=== PATIENT | female | born 2000 | race Caucasian/White ===

== ENCOUNTER → 2022-08-14 | Outpatient (CLI) | payer BC, SELFPAY ==
--- NOTE | 2022-08-14 17:03 | RAD_ITS ---
INDICATION: headache, facial pressure, bilateral earache EXAMINATION/TECHNIQUE: X-RAY - XR Sinuses Paranasal Min 3 Views COMPARISON: FINDINGS: There is no significant mucosal thickening. There are no air-fluid levels. The regional bones are grossly intact. RAD/Sinuses min 3 Views IMPRESSION: Negative sinus series. Electronically Signed: Catarino Hirsch DO at 22:22 EDT ,
== END | disposition home or self-care (01) ==
PROVIDERS: PCP Family Medicine Sports Medicine; Referring Provider Physician Assistant; Visit Provider Physician Assistant
DX: H92.03 Otalgia, bilateral (principal)
CPT/HCPCS: 70220

== ENCOUNTER 2023-10-03 09:05 | Outpatient (CLI) | payer BC, SELFPAY ==
[2023-10-03 09:21] VITALS: BMI 37.3
--- NOTE | 2023-10-03 09:21 | OB.TRI.NOTE ---
HPI - General General Date of Admission: 10/03/23 Date of Service: 10/03/23 Chief Complaint: Headache HPI Narrative ANIBAL CORMIER, is a 22 F who presents headache since yesterday. Tylenol didn't help. BP was 140/76. 120s over 70s this am. Small amount of swelling. No previous high BP. History of chronic migraine. Does take topamax for migraines. Maternal Data Information Final MELVINA: 11/[birth year] Gestational age: 34+2 [facility] Medical History (Updated 10/03/23 @ 21:[address] Liya Mccormick MD) Headache Acute pain of both ears ACL (anterior cruciate ligament) rupture Acute anxiety Home Medications ?Medication ?Instructions ?Recorded ?Last Taken ?Type ferrous sulfate 325 mg (65 mg 325 mg PO QDAY 10/03/23 10/02/23 22:00 History iron) tablet (Feosol) magnesium 200 mg tablet 200 mg PO DAILY 10/03/23 10/02/23 22:00 History vitamins-iron fumarate 65 1 tab PO DAILY 10/03/23 10/02/23 22:00 History mg iron-folic acid 1 mg tablet (Mynatal Plus) sertraline 100 mg tablet (Zoloft) 100 mg PO DAILY 10/03/23 10/02/23 22:00 History Allergy/AdvReac Type Severity Reaction Status Date / Time No Known Allergies Allergy Verified 10/03/23 09:15 History 1 Elective abortions Hx Para 0 Spontaneous abortions Hx # Term Pregnancies Ectopic pregnancies Hx # Pregnancies Multiple births # of living children NST FHR Rate Baby A Baseline: 130 Variability:: Moderate Accelerations:: 15 x 15 Decelerations:: None NST Reactive:: Yes FHR Category:: Category I Uterine Activity:: quiet Assessment & Plan (1) Headache in : QUALIFIERS: Trimester: third trimester Qualified Code(s): O26.893 - Other specified related conditions, third trimester; R51.9 - Headache, unspecified PLAN: Normal labs. Headache improved with Reglan/Benadryl/Tylenol
[2023-10-03 09:30] VITALS: BP 126/76; PULSE 109; RESP 16; TEMP 36.9; O2SAT 97
[2023-10-03 09:45] VITALS: BP 114/67; PULSE 90
[2023-10-03] MEDS: DiphenhydrAMINE 25 MG Capsule PO (09:49)
[2023-10-03] MEDS: Acetaminophen 500 MG Tablet 1000 MG PO (09:49)
[2023-10-03 10:01] VITALS: BP 117/75; PULSE 93
[2023-10-03 10:02] LABS: Hematocrit 36.8 % (37-47); Hemoglobin 12.4 g/dL (12.0-15.0); Mean Corp Hgb Conc 33.7 g/dL (32-36); Mean Corpuscular Hgb 28.2 pg (27.0-32.0); Mean Corpuscular Volume 83.8 fL (81-99); Mean Platelet Vol. 8.5 fl (6.2-12.0); Platelet Count 153 K/mm3 (150-450); Protein, Urine (Random) 6.9 mg/dL (<11.9); Protein:Creat Ratio 256 mg/g CRE (0-200); RBC Distribution Width CV 13.6 % (11.6-14.6); RBC Distribution Width SD 41.8 fl (35.1-43.9); Red Blood Count 4.39 M/mm3 (4.2-5.4); White Blood Count 14.8 K/mm3 (4.4-11.0)
[2023-10-03] MEDS: Metoclopramide 10 MG Tablet PO (10:05)
[2023-10-03 10:08] LABS: AST(SGOT) 23 U/L (15-37); Alanine Aminotransfer ALT/SGPT 23 U/L (13-56); Creatinine, Serum 0.44 mg/dL (0.55-1.02); EST Glomerular Filtration Rate 192 mL/min (>60); Est Glom Filt Rate - Afr Amer 232 mL/min (>60); Estimated Creatinine Clearance 258.25 ml/min; Uric Acid 4.1 mg/dL (2.6-6.0)
[2023-10-03 10:15] VITALS: BP 112/74; PULSE 84
[2023-10-03 10:30] VITALS: BP 110/72; PULSE 96
[2023-10-03 10:45] VITALS: BP 114/74; PULSE 91
== END 2023-10-03 10:51 | disposition home or self-care (01) ==
LOC: WPOUT 09:12 → WP 09:13
PROVIDERS: PCP Family Medicine Sports Medicine; Visit Provider Obstetrics & Gynecology
DX: O26.893 Other specified pregnancy related conditions, third trimester (principal); O99.343 Other mental disorders complicating pregnancy, third trimester; F41.9 Anxiety disorder, unspecified; R51.9 Headache, unspecified
CPT/HCPCS: 36415; 59025; 59050; 82565; 82570; 84156; 84450; 84460; 84550; 85027; 99221; G0378

== ENCOUNTER 2023-11-08 07:17 | Inpatient (IN) | payer BC, MEDICAID, SELFPAY ==
[2023-11-08] VITALS (57 sets, daily range): BP systolic 88–144; BP diastolic 48–91; PULSE 61–229; RESP 14–18; TEMP 36.2–37.3; O2SAT 81–100; BMI 38.0
[2023-11-08] MEDS: Lactated Ringers 1,000 ML 50 ML IV ×2 (07:45→13:43)
[2023-11-08] MEDS: Penicillin G Pot 5,000,000 UNITS in 0.9% Normal Saline (100mL MB+) 100 ML 150 UNITS IV (07:54)
[2023-11-08 08:01] LABS: Absolute Lymphocyte Count 1.34 X10^3/uL (0.83-4.51); Absolute Neutrophil Count 10.5 X10^3/uL (2.0-7.7); Basophil# 0.05 X10^3/uL; Basophil% 0.4 % (0-1); Eosinophil# 0.12 X10^3/uL; Eosinophils% 0.9 % (0-5); Hematocrit 37.1 % (37-47); Hemoglobin 12.5 g/dL (12.0-15.0); Lymphocyte # 1.34 X10^3/ul (0.83-4.51); Lymphocyte % 10.3 % (19-41); Mean Corp Hgb Conc 33.7 g/dL (32-36); Mean Corpuscular Hgb 28.2 pg (27.0-32.0); Mean Corpuscular Volume 83.7 fL (81-99); Mean Platelet Vol. 8.9 fl (6.2-12.0); Monocyte# 0.74 X10^3/uL; Monocyte% 5.7 % (0-10); NRBC Flagged by Analyzer 0 % (0-5); Neutrophil % 80.6 % (47-70); Platelet Count 166 K/mm3 (150-450); RBC Distribution Width SD 42.2 fl (35.1-43.9); Red Blood Count 4.43 M/mm3 (4.2-5.4)
[2023-11-08] MEDS: Oxytocin 15 Units/NS 250ml 15 UNITS/250 ML IV.SOLN 2 UNITS IV (08:05)
[2023-11-08 08:55] LABS: Syphilis Antibodies Non-reactive
[2023-11-08] MEDS: Penicillin G 3,000,000 Units 50 ML 100 UNITS IV ×3 (12:12→20:11)
--- NOTE | 2023-11-08 13:32 | HP.PCM.OB_ITS ---
HPI - General General Date of Admission: 11/08/23 Date of Service: 11/08/23 Chief Complaint: induction of labor HPI Narrative ANIBAL CORMIER, is a 23 F 1 para 0 at 39-3/7 weeks presents for induction of labor due to maternal obesity and desires induction of labor. She denies any vaginal bleeding or leaking of fluid. She has had good movement. was complicated by obesity with prepregnancy BMI of 37, she is GBS po sitive. Maternal Data Information Final MELVINA: 11/12/[birth year] Gestational age: 39 3/7 PFSH [facility] Medical History (Updated 11/08/23 @ 13:[address] Elena Lee MD) Headache Acute pain of both ears ACL (anterior cruciate ligament) rupture Acute anxiety Home Medications ?Medication ?Instructions ?Recorded ?Last Taken ?Type ferrous sulfate 325 mg (65 mg 325 mg PO QDAY 10/03/23 11/07/23 History iron) tablet (Feosol) magnesium 200 mg tablet 200 mg PO DAILY 10/03/23 11/07/23 History vitamins-iron fumarate 65 1 tab PO DAILY preganncy 10/03/23 11/07/23 History mg iron-folic acid 1 mg tablet (Mynatal Plus) sertraline 100 mg tablet (Zoloft) 100 mg PO DAILY anxiety 10/03/23 11/01/23 History Allergy/AdvReac Type Severity Reaction Status Date / Time No Known Allergies Allergy Verified 11/08/23 07:57 Social History Smoking Status: Never smoker History 1 Elective abortions Hx Para 0 Spontaneous abortions Hx # Term Pregnancies Ectopic pregnancies Hx # Pregnancies Multiple births # of living children ROS Constitutional Constitutional: Denies fatigue, fever(s) or malaise Eyes Eyes: Denies change in vision ENT HEENT: Denies dizziness or headache(s) Cardiovascular Cardiovascular: Denies chest pain, dyspnea or lightheadedness Respiratory/Chest Respiratory/Chest: Denies cough or dyspnea Gastrointestinal Gastrointestinal: Denies change in bowel habits Genitourinary Genitourinary: Denies burning urination or genital lesions Integumentary Integumentary: Denies rash Neurologic Neurologic: Denies confusion, dizziness, headache(s), numbness or weakness Vital Signs Vital Signs Vital Signs: 11/08/23 07:32 09/16/24 07:32 11/08/23 07:32 Temperature Temperature Source Pulse Rate 97 Respiratory Rate Blood Pressure 137/80 H BP Systolic 137 BP Diastolic 80 Pulse Ox 98 11/08/23 07:32 11/08/23 07:32 11/08/23 07:32 Temperature 98.4 F Temperature Source Temporal Pulse Rate Respiratory Rate 16 Blood Pressure BP Systolic BP Diastolic Pulse Ox 11/08/23 09:53 11/08/23 09:53 11/08/23 09:55 Temperature Temperature Source Temporal Pulse Rate 73 Respiratory Rate Blood Pressure 138/77 H BP Systolic 138 BP Diastolic 77 Pulse Ox 11/08/23 09:55 11/08/23 09:55 11/08/23 10:59 Temperature 97.5 F L Temperature Source Temporal Pulse Rate Respiratory Rate 14 Blood Pressure BP Systolic BP Diastolic Pulse Ox 11/08/23 10:59 11/08/23 10:59 11/08/23 10:59 Temperature Temperature Source Pulse Rate 73 Respiratory Rate 16 Blood Pressure 144/76 H BP Systolic 144 BP Diastolic 76 Pulse Ox 11/08/23 10:59 11/08/23 11:00 11/08/23 11:00 Temperature 97.6 F L Temperature Source Pulse Rate 74 Respiratory Rate Blood Pressure BP Systolic BP Diastolic Pulse Ox 98 11/08/23 12:04 11/08/23 12:04 11/08/23 12:04 Temperature Temperature Source Temporal Pulse Rate 77 Respiratory Rate 16 Blood Pressure BP Systolic BP Diastolic Pulse Ox 11/08/23 12:04 11/08/23 12:04 11/08/23 12:06 Temperature 98.3 F Temperature Source Pulse Rate Respiratory Rate Blood Pressure 123/74 H BP Systolic 123 BP Diastolic 74 Pulse Ox 99 11/08/23 12:06 11/08/23 12:09 11/08/23 12:09 Temperature Temperature Source Pulse Rate 81 74 Respiratory Rate Blood Pressure BP Systolic BP Diastolic Pulse Ox 98 11/08/23 13:11 11/08/23 13:11 11/08/23 13:12 Temperature Temperature Source Temporal Pulse Rate 229 H Respiratory Rate Blood Pressure BP Systolic BP Diastolic Pulse Ox 81 11/08/23 13:12 11/08/23 13:12 11/08/23 13:12 Temperature Temperature Source Pulse Rate 77 Respiratory Rate 16 Blood Pressure BP Systolic BP Diastolic Pulse Ox 98 11/08/23 13:12 11/08/23 13:14 11/08/23 13:14 Temperature 98.1 F Temperature Source Pulse Rate 80 Respiratory Rate Blood Pressure 135/77 H BP Systolic 135 BP Diastolic 77 Pulse Ox Weight Weight: 110.223 kg Body Mass Index (BMI) 38.0 Physical Exam Const alert and no apparent distress General Appearance: cooperative HEENT normocephalic Resp normal respiratory effort Cardio regular rate GI soft to palpation GI Narrative: gravid, nontender, appropriate for gestational age Extremity no calf tenderness General Extremity: edema Skin no wounds Rashes: No rashes noted Psych activity/motor behavior normal Labs Labs Labs: Blood Type O POSITIVE Antibody Screen NEGATIVE Hct 37.1 % (37-47) Hgb 12.5 g/dL (12.0-15.0) Syphilis Total Ab Non-reactive Assessment & Plan (1) High-risk in third trimester: PLAN: Risk benefits alternatives to induction labor and we discussed with patient, her questions were answered to her satisfaction she desires to proceed. Group B strep prophylaxis is initiated. Pitocin and artificial rupture membranes for induction of labor. May have epidural and routine pain control measures as desired in labor. Estimated weight is less than 4500 g clinically and pelvis clinically adequate to expect vaginal delivery. (2) 39 weeks gestation of : (3) Maternal obesity syndrome in third trimester:
[2023-11-08] MEDS: Lactated Ringers 1,000 ML 999 ML IV (14:16)
[2023-11-08] MEDS: fentaNYL-bupivacaine (epidural) 100 ML BAG EPIDURAL ×2 (15:29→20:10)
[2023-11-08] MEDS: Lactated Ringers 1,000 ML 900 ML IV (17:03)
[2023-11-08] MEDS: ePHEDrine Sulfate 50 MG/ML Ampul 10 MG IV (17:46)
[2023-11-08] MEDS: Lactated Ringers 1,000 ML 200 ML IV (19:57)
[2023-11-08] MEDS: LACTATED RINGERS 500 ML 999 ML IV (19:57)
[2023-11-08] MEDS: Ondansetron 4 MG/2 ML Vial IV (23:03)
[2023-11-09] VITALS (57 sets, daily range): BP systolic 117–188; BP diastolic 60–83; PULSE 71–160; RESP 14–18; TEMP 36.8–37.1; O2SAT 93–100
[2023-11-09] MEDS: Methylergonovine 0.2 MG/ML Ampul IM ×2 (00:13→00:38)
[2023-11-09] MEDS: miSOPROStol 200 MCG Tablet 1000 MCG RC (00:20)
[2023-11-09] MEDS: Oxytocin 15 Units/NS 250ml 15 UNITS/250 ML IV.SOLN 999 UNITS IV (00:26)
[2023-11-09] MEDS: Carboprost Tromethamine 250 MCG/ML Ampul IM (00:34)
[2023-11-09] MEDS: TRANEXAMIC ACID 1,000 MG in 0.9% Normal Saline (100mL Bag) 100 ML 440 MG IV (00:41)
[2023-11-09 00:54] LABS: Absolute Neutrophil Count 14.5 X10^3/uL (2.0-7.7); Basophil# 0.03 X10^3/uL; Basophil% 0.2 % (0-1); Eosinophil# 0.02 X10^3/uL; Eosinophils% 0.1 % (0-5); Hematocrit 31.7 % (37-47); Hemoglobin 10.7 g/dL (12.0-15.0); Lymphocyte % 6.5 % (19-41); Mean Corp Hgb Conc 33.8 g/dL (32-36); Mean Corpuscular Hgb 28.5 pg (27.0-32.0); Mean Corpuscular Volume 84.3 fL (81-99); Mean Platelet Vol. 9.3 fl (6.2-12.0); Monocyte# 1.07 X10^3/uL; Monocyte% 6.3 % (0-10); NRBC Flagged by Analyzer 0 % (0-5); Neutrophil # 14.54 X10^3/uL (2.7-7.7); Platelet Count 145 K/mm3 (150-450); RBC Distribution Width CV 13.9 % (11.6-14.6); RBC Distribution Width SD 42.5 fl (35.1-43.9); Red Blood Count 3.76 M/mm3 (4.2-5.4); White Blood Count 16.9 K/mm3 (4.4-11.0)
[2023-11-09 01:07] LABS: International Normalized Ratio 1.2; Prothrombin Time (Protime)PT. 14.7 SECONDS (11.7-14.9)
[2023-11-09] MEDS: Lactated Ringers 1,000 ML 100 ML IV (01:30)
[2023-11-09] MEDS: Oxytocin 15 Units/NS 250ml 15 UNITS/250 ML IV.SOLN 83 UNITS IV (01:30)
[2023-11-09] MEDS: proCHLORPERazine 10 MG/2 ML Vial IV (01:34)
--- NOTE | 2023-11-09 01:34 | OP.PCM_ITS ---
Assessment & Plan (1) (spontaneous vaginal delivery): (2) Atony of uterus with hemorrhage: (3) Shoulder dystocia during labor and delivery: (4) Second degree laceration of perineum, delivered, current hospitalization: (5) 39 weeks gestation of : Maternal Data Information Final MELVINA: [birth year] Gestational age: 39 3/7 Vaginal Delivery Maternal Presentation Maternal Presentation: Medically Indicated Induction Type of Induction: Pitocin and Amniotomy Operative Information Date of Procedure: 11/08/23 Pre-Operative Diagnosis: labor Post-Operative Diagnosis: same, hemorrhage from atony, shoulder dystocia Surgery / Procedure Performed: Spontaneous Vaginal Delivery Type of Anesthesia: Epidural Special Medications: misoprostol, methergine x2, hemabate, Ancef, tranexemic acid, hemablast Drain: Kong to straight drain Estimated Blood Loss: 2600 cc Time of Delivery: 11:59 Findings Description of Procedure: A vigorous male infant was delivered [ELIZABETH] over [a second-degree perineal laceration]. [A loose nuchal cord ?1 was easily reduced.] The remainder the did not deliver within 15 seconds with maternal pushing efforts. Then I asked for the legs to be placed back and flexed. The shoulders were actually transverse and I reached in and attempted to turn the shoulders more oblique. The team was called. Suprapubic pressure was then given and the shoulder then released and delivered. The remainder the infant delivered in less than 10 seconds after that with maternal pushing efforts only and minimal traction. The Pitocin infusion was initiated for active management of the third stage. The cord was clamped and cut after approximately 30 seconds so the medical technologist blood bank and nursing team could evaluate the . The placenta was delivered spontaneously and intact. The uterus was somewhat boggy and evacuated of clots and massage given. I then began to repair the laceration. It was not very deep and did not extend very high into the vagina only approximately 3 cm but there was a lot of active bleeding from it. There was also some bleeding from the abrasion of the tissue along the left vaginal wall. This extended up to nearly the urethra. As I was suturing there is constant trickle of blood from the fundus. The fundus had filled up with blood again I again initiated some fundal massage and the patient was given Methergine eyes for me is a process will be brought to the room. I continued the repair and there continued to be bleeding from the uterus. Again fundal massage was given and the Vasoprost was placed rectally. This point seem like the uterus was firm for small amount of time and then it began to trickle again. There is bleeding from under the sutures and the vaginal portion of the repair. An ultrasound was performed and the bright white endometrial stripe was noted. There continue to be a trickle from the uterus itself and it was still somewhat boggy. Fundal massage was continued and the patient was then given Hemabate and another dose of Methergine. Transischemic acid was ordered. A second line had been started after the administration of the misoprostol. IV fluid bolus was given and the Pitocin had been opened up as well to give a bolus. At this point the uterus seemed firm but there is still bleeding from between the sutures. Sutures were placed along the vaginal extension of the laceration as well as in the midportion of the vagina as well. Heema blast was placed over the area and pressure was held for 2-minute with a moist laparotomy sponge. However when it was removed there continued to be bleeding from between the wrist. I then placed another room of sutures over top of the prior existing ones in a running locked fashion. This slowed the bleeding but there was still some oozing between the sutures. Decision was made that further suturing would not be effective. The rest of the hemoblast was placed over the suture line and a moist laparotomy tape was packed in the vagina leaving the tail out. Only 1 laparotomy tape was placed. 3-0 PDS and 2-0 Vicryl sutures were used. Sponge and needle counts were correct. A vaginal sweep was completed by me before the laparotomy sponge was placed. Patient was given a dose of Ancef after delivery. Will follow serial hemoglobins. Patient is typed and crossed and held for 2 units of blood. Vitals are stable at this time and patient denies lightheadedness chest pain or shortness of breath. Will continue IV fluids at maintenance of 100 cc/h for now. All the sponges and the delivery bag were weighed for calculated blood loss of approximately 2600 cc. Presentation: ELIZABETH Amniotic Membrane Rupture Type: Artificial Amniotic Fluid Description: Clear Placental Delivery Description: Spontaneous Placenta Disposition: [facility] Cord Vessel Description: 3 Vessels Cord Entanglement: Around neck x 1, loose Nuchal Cord Compression: Without compression Cord Gases: ABG and VBG Infant A Gender: Male (Pramod) (1 minute): 8 (5 minute): 9 Delayed Cord Clamping: No Post Vaginal Delivery Medications Given After Delivery: IV Pitocin, IM Pitocin, IM Methergin, IM Hemabate and - (cytotec and txa) Episiotomy Description: None Laceration: 2nd degree (perineal with right vaginal extension toward urethra) Complication Complications: - (Shoulder dystocia and atony with hemorrhage)
[2023-11-09 01:42] LABS: Fibrinogen 492 mg/dl (203-444)
[2023-11-09] MEDS: Loperamide 2 MG Capsule 4 MG PO (02:12)
[2023-11-09] MEDS: Cefazolin 2 GM in 0.9% Normal Saline (100mL Bag) 100 ML IV (02:13)
[2023-11-09] MEDS: LORazepam 2 MG/ML Syringe 1 MG IV (03:33)
[2023-11-09] MEDS: 0.9% Saline Lock 10 ML Syringe IV (05:35)
[2023-11-09 05:40] LABS: Absolute Lymphocyte Count 1.01 X10^3/uL (0.83-4.51); Absolute Neutrophil Count 19.9 X10^3/uL (2.0-7.7); Basophil# 0.03 X10^3/uL; Basophil% 0.1 % (0-1); Eosinophil# 0.02 X10^3/uL; Eosinophils% 0.1 % (0-5); Hematocrit 30.7 % (37-47); Hemoglobin 10.8 g/dL (12.0-15.0); Lymphocyte # 1.01 X10^3/ul (0.83-4.51); Lymphocyte % 4.5 % (19-41); Mean Corp Hgb Conc 35.2 g/dL (32-36); Mean Corpuscular Hgb 29.3 pg (27.0-32.0); Mean Corpuscular Volume 83.4 fL (81-99); Mean Platelet Vol. 8.8 fl (6.2-12.0); Monocyte# 1.16 X10^3/uL; Monocyte% 5.2 % (0-10); NRBC Flagged by Analyzer 0 % (0-5); Neutrophil # 19.93 X10^3/uL (2.7-7.7); Neutrophil % 89.2 % (47-70); Platelet Count 149 K/mm3 (150-450); RBC Distribution Width CV 13.8 % (11.6-14.6); RBC Distribution Width SD 41.3 fl (35.1-43.9); Red Blood Count 3.68 M/mm3 (4.2-5.4); White Blood Count 22.4 K/mm3 (4.4-11.0)
--- NOTE | 2023-11-09 08:31 | PCM.NUR.HP ---
Objective Objective Data: 11/08/23 09:53 11/08/23 09:53 11/08/23 09:55 Temperature Temperature Source Temporal Pulse Rate 73 Respiratory Rate Blood Pressure 138/77 H Blood Pressure Mean BP Systolic 138 BP Diastolic 77 Blood Pressure Source Blood Pressure Position Blood Pressure Location Pulse Ox Oxygen Delivery Method 11/08/23 09:55 11/08/23 09:55 11/08/23 10:59 Temperature 97.5 F L Temperature Source Temporal Pulse Rate Respiratory Rate 14 Blood Pressure Blood Pressure Mean BP Systolic BP Diastolic Blood Pressure Source Blood Pressure Position Blood Pressure Location Pulse Ox Oxygen Delivery Method 11/08/23 10:59 11/08/23 10:59 11/08/23 10:59 Temperature Temperature Source Pulse Rate 73 Respiratory Rate 16 Blood Pressure 144/76 H Blood Pressure Mean BP Systolic 144 BP Diastolic 76 Blood Pressure Source Blood Pressure Position Blood Pressure Location Pulse Ox Oxygen Delivery Method 11/08/23 10:59 11/08/23 11:00 11/08/23 11:00 Temperature 97.6 F L Temperature Source Pulse Rate 74 Respiratory Rate Blood Pressure Blood Pressure Mean BP Systolic BP Diastolic Blood Pressure Source Blood Pressure Position Blood Pressure Location Pulse Ox 98 Oxygen Delivery Method 11/08/23 12:04 11/08/23 12:04 11/08/23 12:04 Temperature Temperature Source Temporal Pulse Rate 77 Respiratory Rate 16 Blood Pressure Blood Pressure Mean BP Systolic BP Diastolic Blood Pressure Source Blood Pressure Position Blood Pressure Location Pulse Ox Oxygen Delivery Method 11/08/23 12:04 11/08/23 12:04 11/08/23 12:06 Temperature 98.3 F Temperature Source Pulse Rate Respiratory Rate Blood Pressure 123/74 H Blood Pressure Mean BP Systolic 123 BP Diastolic 74 Blood Pressure Source Blood Pressure Position Blood Pressure Location Pulse Ox 99 Oxygen Delivery Method 11/08/23 12:06 11/08/23 12:09 11/08/23 12:09 Temperature Temperature Source Pulse Rate 81 74 Respiratory Rate Blood Pressure Blood Pressure Mean BP Systolic BP Diastolic Blood Pressure Source Blood Pressure Position Blood Pressure Location Pulse Ox 98 Oxygen Delivery Method 11/08/23 13:11 11/08/23 13:11 11/08/23 13:12 Temperature Temperature Source Temporal Pulse Rate 229 H Respiratory Rate Blood Pressure Blood Pressure Mean BP Systolic BP Diastolic Blood Pressure Source Blood Pressure Position Blood Pressure Location Pulse Ox 81 Oxygen Delivery Method 11/08/23 13:12 11/08/23 13:12 11/08/23 13:12 Temperature Temperature Source Pulse Rate 77 Respiratory Rate 16 Blood Pressure Blood Pressure Mean BP Systolic BP Diastolic Blood Pressure Source Blood Pressure Position Blood Pressure Location Pulse Ox 98 Oxygen Delivery Method 11/08/23 13:12 11/08/23 13:14 11/08/23 13:14 Temperature 98.1 F Temperature Source Pulse Rate 80 Respiratory Rate Blood Pressure 135/77 H Blood Pressure Mean BP Systolic 135 BP Diastolic 77 Blood Pressure Source Blood Pressure Position Blood Pressure Location Pulse Ox Oxygen Delivery Method 11/08/23 14:07 11/08/23 14:07 11/08/23 14:07 Temperature Temperature Source Temporal Pulse Rate 79 Respiratory Rate Blood Pressure 142/74 H Blood Pressure Mean BP Systolic 142 BP Diastolic 74 Blood Pressure Source Blood Pressure Position Blood Pressure Location Pulse Ox Oxygen Delivery Method 11/08/23 14:07 11/08/23 14:07 11/08/23 14:07 Temperature 97.5 F L Temperature Source Pulse Rate Respiratory Rate 18 Blood Pressure Blood Pressure Mean BP Systolic BP Diastolic Blood Pressure Source Blood Pressure Position Blood Pressure Location Pulse Ox 98 Oxygen Delivery Method 11/08/23 14:38 11/08/23 14:38 11/08/23 15:01 Temperature Temperature Source Pulse Rate 122 H Respiratory Rate Blood Pressure 140/88 H Blood Pressure Mean BP Systolic 140 BP Diastolic 88 Blood Pressure Source Blood Pressure Position Blood Pressure Location Pulse Ox 81 Oxygen Delivery Method 11/08/23 15:01 11/08/23 15:01 11/08/23 15:01 Temperature Temperature Source Pulse Rate 98 97 Respiratory Rate Blood Pressure Blood Pressure Mean BP Systolic BP Diastolic Blood Pressure Source Blood Pressure Position Blood Pressure Location Pulse Ox 100 Oxygen Delivery Method 11/08/23 15:06 11/08/23 15:06 11/08/23 15:07 Temperature Temperature Source Pulse Rate 89 Respiratory Rate Blood Pressure 136/70 H Blood Pressure Mean BP Systolic 136 BP Diastolic 70 Blood Pressure Source Blood Pressure Position Blood Pressure Location Pulse Ox 99 Oxygen Delivery Method 11/08/23 15:07 11/08/23 15:11 11/08/23 15:11 Temperature Temperature Source Pulse Rate 86 86 Respiratory Rate Blood Pressure Blood Pressure Mean BP Systolic BP Diastolic Blood Pressure Source Blood Pressure Position Blood Pressure Location Pulse Ox 99 Oxygen Delivery Method 11/08/23 15:12 11/08/23 15:12 11/08/23 15:16 Temperature Temperature Source Pulse Rate 84 83 Respiratory Rate Blood Pressure 126/68 H Blood Pressure Mean BP Systolic 126 BP Diastolic 68 Blood Pressure Source Blood Pressure Position Blood Pressure Location Pulse Ox Oxygen Delivery Method 11/08/23 15:16 11/08/23 15:17 11/08/23 15:17 Temperature Temperature Source Pulse Rate 74 Respiratory Rate Blood Pressure 124/56 H Blood Pressure Mean BP Systolic 124 BP Diastolic 56 Blood Pressure Source Blood Pressure Position Blood Pressure Location Pulse Ox 100 Oxygen Delivery Method 11/08/23 15:21 11/08/23 15:21 11/08/23 15:21 Temperature Temperature Source Pulse Rate 74 74 Respiratory Rate Blood Pressure 123/57 H Blood Pressure Mean BP Systolic 123 BP Diastolic 57 Blood Pressure Source Blood Pressure Position Blood Pressure Location Pulse Ox Oxygen Delivery Method 11/08/23 15:21 11/08/23 15:24 11/08/23 15:24 Temperature Temperature Source Pulse Rate 78 Respiratory Rate Blood Pressure Blood Pressure Mean BP Systolic BP Diastolic Blood Pressure Source Blood Pressure Position Blood Pressure Location Pulse Ox 100 93 Oxygen Delivery Method 11/08/23 15:24 11/08/23 15:26 11/08/23 15:26 Temperature Temperature Source Pulse Rate 79 Respiratory Rate 16 Blood Pressure Blood Pressure Mean BP Systolic BP Diastolic Blood Pressure Source Blood Pressure Position Blood Pressure Location Pulse Ox 100 Oxygen Delivery Method 11/08/23 15:28 11/08/23 15:28 11/08/23 15:29 Temperature Temperature Source Pulse Rate 74 Respiratory Rate 16 Blood Pressure 124/70 H Blood Pressure Mean BP Systolic 124 BP Diastolic 70 Blood Pressure Source Blood Pressure Position Blood Pressure Location Pulse Ox Oxygen Delivery Method 11/08/23 15:31 11/08/23 15:31 11/08/23 15:31 Temperature Temperature Source Pulse Rate 76 Respiratory Rate Blood Pressure 125/68 H Blood Pressure Mean BP Systolic 125 BP Diastolic 68 Blood Pressure Source Blood Pressure Position Blood Pressure Location Pulse Ox 100 Oxygen Delivery Method 11/08/23 15:33 11/08/23 15:36 11/08/23 15:36 Temperature Temperature Source Pulse Rate 80 Respiratory Rate 14 Blood Pressure 120/71 Blood Pressure Mean BP Systolic 120 BP Diastolic 71 Blood Pressure Source Blood Pressure Position Blood Pressure Location Pulse Ox Oxygen Delivery Method 11/08/23 15:36 11/08/23 15:37 11/08/23 15:37 Temperature 97.2 F L Temperature Source Temporal Pulse Rate Respiratory Rate Blood Pressure Blood Pressure Mean BP Systolic BP Diastolic Blood Pressure Source Blood Pressure Position Blood Pressure Location Pulse Ox 100 Oxygen Delivery Method 11/08/23 15:39 11/08/23 15:41 11/08/23 15:41 Temperature Temperature Source Pulse Rate 77 Respiratory Rate 14 Blood Pressure Blood Pressure Mean BP Systolic BP Diastolic Blood Pressure Source Blood Pressure Position Blood Pressure Location Pulse Ox 99 Oxygen Delivery Method 11/08/23 15:42 11/08/23 15:42 11/08/23 15:45 Temperature Temperature Source Pulse Rate 75 Respiratory Rate 14 Blood Pressure 125/68 H Blood Pressure Mean BP Systolic 125 BP Diastolic 68 Blood Pressure Source Blood Pressure Position Blood Pressure Location Pulse Ox Oxygen Delivery Method 11/08/23 15:46 11/08/23 15:46 11/08/23 15:48 Temperature Temperature Source Pulse Rate 76 Respiratory Rate Blood Pressure 107/55 L Blood Pressure Mean BP Systolic 107 BP Diastolic 55 Blood Pressure Source Blood Pressure Position Blood Pressure Location Pulse Ox 100 Oxygen Delivery Method 11/08/23 15:48 11/08/23 15:49 11/08/23 16:39 Temperature Temperature Source Temporal Pulse Rate 76 Respiratory Rate 16 Blood Pressure Blood Pressure Mean BP Systolic BP Diastolic Blood Pressure Source Blood Pressure Position Blood Pressure Location Pulse Ox Oxygen Delivery Method 11/08/23 16:39 11/08/23 16:39 11/08/23 16:39 Temperature Temperature Source Pulse Rate 65 Respiratory Rate 14 Blood Pressure 117/58 L Blood Pressure Mean BP Systolic 117 BP Diastolic 58 Blood Pressure Source Blood Pressure Position Blood Pressure Location Pulse Ox Oxygen Delivery Method 11/08/23 16:39 11/08/23 16:39 11/08/23 16:59 Temperature 97.7 F L Temperature Source Pulse Rate Respiratory Rate Blood Pressure 92/48 L Blood Pressure Mean BP Systolic 92 BP Diastolic 48 Blood Pressure Source Blood Pressure Position Blood Pressure Location Pulse Ox 100 Oxygen Delivery Method 11/08/23 16:59 11/08/23 17:12 11/08/23 17:12 Temperature Temperature Source Pulse Rate 71 66 Respiratory Rate Blood Pressure 103/55 L Blood Pressure Mean BP Systolic 103 BP Diastolic 55 Blood Pressure Source Blood Pressure Position Blood Pressure Location Pulse Ox Oxygen Delivery Method 11/08/23 17:21 11/08/23 17:21 11/08/23 17:31 Temperature Temperature Source Pulse Rate 61 Respiratory Rate Blood Pressure 102/52 L 95/54 L Blood Pressure Mean BP Systolic 102 95 BP Diastolic 52 54 Blood Pressure Source Blood Pressure Position Blood Pressure Location Pulse Ox Oxygen Delivery Method 11/08/23 17:31 11/08/23 17:32 11/08/23 17:32 Temperature Temperature Source Pulse Rate 63 62 Respiratory Rate Blood Pressure 88/49 L Blood Pressure Mean BP Systolic 88 BP Diastolic 49 Blood Pressure Source Blood Pressure Position Blood Pressure Location Pulse Ox Oxygen Delivery Method 11/08/23 17:54 11/08/23 17:54 11/08/23 17:58 Temperature Temperature Source Pulse Rate 88 Respiratory Rate Blood Pressure 133/91 H 134/83 H Blood Pressure Mean BP Systolic 133 134 BP Diastolic 91 83 Blood Pressure Source Blood Pressure Position Blood Pressure Location Pulse Ox Oxygen Delivery Method 11/08/23 17:58 11/08/23 17:58 11/08/23 17:58 Temperature Temperature Source Temporal Pulse Rate 111 H 94 Respiratory Rate Blood Pressure Blood Pressure Mean BP Systolic BP Diastolic Blood Pressure Source Blood Pressure Position Blood Pressure Location Pulse Ox Oxygen Delivery Method 11/08/23 17:58 11/08/23 17:58 11/08/23 17:58 Temperature 98.2 F Temperature Source Pulse Rate Respiratory Rate 16 Blood Pressure Blood Pressure Mean BP Systolic BP Diastolic Blood Pressure Source Blood Pressure Position Blood Pressure Location Pulse Ox 100 Oxygen Delivery Method 11/08/23 18:02 11/08/23 18:02 11/08/23 18:07 Temperature Temperature Source Pulse Rate 85 Respiratory Rate Blood Pressure 124/59 H 122/58 H Blood Pressure Mean BP Systolic 124 122 BP Diastolic 59 58 Blood Pressure Source Blood Pressure Position Blood Pressure Location Pulse Ox Oxygen Delivery Method 11/08/23 18:07 11/08/23 18:17 11/08/23 18:17 Temperature Temperature Source Pulse Rate 82 79 Respiratory Rate Blood Pressure 140/63 H Blood Pressure Mean BP Systolic 140 BP Diastolic 63 Blood Pressure Source Blood Pressure Position Blood Pressure Location Pulse Ox Oxygen Delivery Method 11/08/23 19:29 11/08/23 19:30 11/08/23 19:30 Temperature Temperature Source Pulse Rate 81 Respiratory Rate Blood Pressure Blood Pressure Mean BP Systolic BP Diastolic Blood Pressure Source Blood Pressure Position Blood Pressure Location Pulse Ox 82 99 Oxygen Delivery Method 11/08/23 19:31 11/08/23 19:31 11/08/23 19:33 Temperature Temperature Source Temporal Pulse Rate 94 Respiratory Rate Blood Pressure 122/61 H Blood Pressure Mean BP Systolic 122 BP Diastolic 61 Blood Pressure Source Blood Pressure Position Blood Pressure Location Pulse Ox Oxygen Delivery Method 11/08/23 19:33 11/08/23 19:33 11/08/23 20:19 Temperature 98.8 F Temperature Source Pulse Rate 84 Respiratory Rate 16 Blood Pressure Blood Pressure Mean BP Systolic BP Diastolic Blood Pressure Source Blood Pressure Position Blood Pressure Location Pulse Ox Oxygen Delivery Method 11/08/23 20:19 11/08/23 20:20 11/08/23 20:20 Temperature Temperature Source Pulse Rate 86 Respiratory Rate Blood Pressure 130/63 H Blood Pressure Mean BP Systolic 130 BP Diastolic 63 Blood Pressure Source Blood Pressure Position Blood Pressure Location Pulse Ox 97 Oxygen Delivery Method 11/08/23 20:20 11/08/23 20:20 11/08/23 20:20 Temperature 97.4 F L Temperature Source Temporal Pulse Rate Respiratory Rate 16 Blood Pressure Blood Pressure Mean BP Systolic BP Diastolic Blood Pressure Source Blood Pressure Position Blood Pressure Location Pulse Ox Oxygen Delivery Method 11/08/23 21:18 11/08/23 21:18 11/08/23 21:18 Temperature Temperature Source Temporal Pulse Rate 90 Respiratory Rate Blood Pressure 121/64 H Blood Pressure Mean BP Systolic 121 BP Diastolic 64 Blood Pressure Source Blood Pressure Position Blood Pressure Location Pulse Ox Oxygen Delivery Method 11/08/23 21:18 11/08/23 21:18 11/08/23 22:02 Temperature 99.0 F Temperature Source Pulse Rate Respiratory Rate 16 Blood Pressure 123/71 H Blood Pressure Mean BP Systolic 123 BP Diastolic 71 Blood Pressure Source Blood Pressure Position Blood Pressure Location Pulse Ox Oxygen Delivery Method 11/08/23 22:02 11/08/23 22:02 11/08/23 22:02 Temperature Temperature Source Temporal Pulse Rate 107 H 104 H Respiratory Rate Blood Pressure Blood Pressure Mean BP Systolic BP Diastolic Blood Pressure Source Blood Pressure Position Blood Pressure Location Pulse Ox Oxygen Delivery Method 11/08/23 22:02 11/08/23 22:02 11/08/23 22:02 Temperature 99.2 F H Temperature Source Pulse Rate Respiratory Rate 14 Blood Pressure Blood Pressure Mean BP Systolic BP Diastolic Blood Pressure Source Blood Pressure Position Blood Pressure Location Pulse Ox 98 Oxygen Delivery Method 11/08/23 23:07 11/08/23 23:07 11/08/23 23:07 Temperature 98.7 F Temperature Source Temporal Pulse Rate Respiratory Rate 16 Blood Pressure Blood Pressure Mean BP Systolic BP Diastolic Blood Pressure Source Blood Pressure Position Blood Pressure Location Pulse Ox Oxygen Delivery Method 11/08/23 23:08 11/08/23 23:08 11/09/23 00:32 Temperature Temperature Source Pulse Rate 106 H 84 Respiratory Rate Blood Pressure 127/62 H Blood Pressure Mean BP Systolic 127 BP Diastolic 62 Blood Pressure Source Blood Pressure Position Blood Pressure Location Pulse Ox Oxygen Delivery Method 11/09/23 00:32 11/09/23 00:37 11/09/23 00:37 Temperature Temperature Source Pulse Rate 107 H Respiratory Rate Blood Pressure Blood Pressure Mean BP Systolic BP Diastolic Blood Pressure Source Blood Pressure Position Blood Pressure Location Pulse Ox 97 99 Oxygen Delivery Method 11/09/23 00:38 11/09/23 00:38 11/09/23 00:42 Temperature Temperature Source Pulse Rate 112 H 88 Respiratory Rate Blood Pressure 188/69 H Blood Pressure Mean BP Systolic 188 BP Diastolic 69 Blood Pressure Source Blood Pressure Position Blood Pressure Location Pulse Ox Oxygen Delivery Method 11/09/23 00:42 11/09/23 00:47 11/09/23 00:47 Temperature Temperature Source Pulse Rate 76 Respiratory Rate Blood Pressure 118/64 Blood Pressure Mean BP Systolic 118 BP Diastolic 64 Blood Pressure Source Blood Pressure Position Blood Pressure Location Pulse Ox 100 Oxygen Delivery Method 11/09/23 00:47 11/09/23 00:47 11/09/23 00:52 Temperature Temperature Source Pulse Rate 76 71 Respiratory Rate Blood Pressure Blood Pressure Mean BP Systolic BP Diastolic Blood Pressure Source Blood Pressure Position Blood Pressure Location Pulse Ox 100 Oxygen Delivery Method 11/09/23 00:52 11/09/23 00:57 11/09/23 00:57 Temperature Temperature Source Pulse Rate 72 Respiratory Rate Blood Pressure Blood Pressure Mean BP Systolic BP Diastolic Blood Pressure Source Blood Pressure Position Blood Pressure Location Pulse Ox 100 100 Oxygen Delivery Method 11/09/23 01:02 11/09/23 01:02 11/09/23 01:07 Temperature Temperature Source Pulse Rate 76 84 Respiratory Rate Blood Pressure Blood Pressure Mean BP Systolic BP Diastolic Blood Pressure Source Blood Pressure Position Blood Pressure Location Pulse Ox 95 Oxygen Delivery Method 11/09/23 01:07 11/09/23 01:12 11/09/23 01:12 Temperature Temperature Source Pulse Rate 104 H Respiratory Rate Blood Pressure Blood Pressure Mean BP Systolic BP Diastolic Blood Pressure Source Blood Pressure Position Blood Pressure Location Pulse Ox 96 99 Oxygen Delivery Method 11/09/23 01:17 11/09/23 01:17 11/09/23 01:22 Temperature Temperature Source Pulse Rate 113 H 105 H Respiratory Rate Blood Pressure Blood Pressure Mean BP Systolic BP Diastolic Blood Pressure Source Blood Pressure Position Blood Pressure Location Pulse Ox 96 Oxygen Delivery Method 11/09/23 01:22 11/09/23 01:27 11/09/23 01:27 Temperature Temperature Source Pulse Rate 160 H Respiratory Rate Blood Pressure Blood Pressure Mean BP Systolic BP Diastolic Blood Pressure Source Blood Pressure Position Blood Pressure Location Pulse Ox 98 98 Oxygen Delivery Method 11/09/23 01:32 11/09/23 01:32 11/09/23 01:34 Temperature Temperature Source Pulse Rate 137 H Respiratory Rate Blood Pressure 119/71 Blood Pressure Mean BP Systolic 119 BP Diastolic 71 Blood Pressure Source Blood Pressure Position Blood Pressure Location Pulse Ox 99 Oxygen Delivery Method 11/09/23 01:34 11/09/23 01:35 11/09/23 01:35 Temperature Temperature Source Temporal Pulse Rate 122 H Respiratory Rate 16 Blood Pressure Blood Pressure Mean BP Systolic BP Diastolic Blood Pressure Source Blood Pressure Position Blood Pressure Location Pulse Ox Oxygen Delivery Method 11/09/23 01:35 11/09/23 01:37 11/09/23 01:37 Temperature 98.2 F Temperature Source Pulse Rate 114 H Respiratory Rate Blood Pressure Blood Pressure Mean BP Systolic BP Diastolic Blood Pressure Source Blood Pressure Position Blood Pressure Location Pulse Ox 96 Oxygen Delivery Method 11/09/23 01:38 11/09/23 01:38 11/09/23 01:42 Temperature Temperature Source Pulse Rate 102 H 118 H Respiratory Rate Blood Pressure Blood Pressure Mean BP Systolic BP Diastolic Blood Pressure Source Blood Pressure Position Blood Pressure Location Pulse Ox 93 Oxygen Delivery Method 11/09/23 01:42 11/09/23 01:47 11/09/23 01:47 Temperature Temperature Source Pulse Rate 119 H Respiratory Rate Blood Pressure Blood Pressure Mean BP Systolic BP Diastolic Blood Pressure Source Blood Pressure Position Blood Pressure Location Pulse Ox 95 95 Oxygen Delivery Method 11/09/23 01:50 11/09/23 01:52 11/09/23 01:52 Temperature Temperature Source Pulse Rate 105 H Respiratory Rate 16 Blood Pressure Blood Pressure Mean BP Systolic BP Diastolic Blood Pressure Source Blood Pressure Position Blood Pressure Location Pulse Ox 95 Oxygen Delivery Method 11/09/23 01:57 11/09/23 01:57 11/09/23 02:02 Temperature Temperature Source Pulse Rate 114 H 108 H Respiratory Rate Blood Pressure Blood Pressure Mean BP Systolic BP Diastolic Blood Pressure Source Blood Pressure Position Blood Pressure Location Pulse Ox 95 Oxygen Delivery Method 11/09/23 02:02 11/09/23 02:05 11/09/23 02:07 Temperature Temperature Source Pulse Rate 116 H Respiratory Rate 16 Blood Pressure Blood Pressure Mean BP Systolic BP Diastolic Blood Pressure Source Blood Pressure Position Blood Pressure Location Pulse Ox 95 Oxygen Delivery Method 11/09/23 02:07 11/09/23 02:12 11/09/23 02:12 Temperature Temperature Source Pulse Rate 111 H Respiratory Rate Blood Pressure Blood Pressure Mean BP Systolic BP Diastolic Blood Pressure Source Blood Pressure Position Blood Pressure Location Pulse Ox 95 96 Oxygen Delivery Method 11/09/23 02:17 11/09/23 02:17 11/09/23 02:19 Temperature Temperature Source Pulse Rate 112 H Respiratory Rate Blood Pressure 121/68 H Blood Pressure Mean BP Systolic 121 BP Diastolic 68 Blood Pressure Source Blood Pressure Position Blood Pressure Location Pulse Ox 96 Oxygen Delivery Method 11/09/23 02:19 11/09/23 02:20 11/09/23 02:22 Temperature Temperature Source Pulse Rate 110 H 116 H Respiratory Rate 16 Blood Pressure Blood Pressure Mean BP Systolic BP Diastolic Blood Pressure Source Blood Pressure Position Blood Pressure Location Pulse Ox Oxygen Delivery Method 11/09/23 02:22 11/09/23 02:28 11/09/23 02:28 Temperature Temperature Source Pulse Rate 119 H Respiratory Rate Blood Pressure Blood Pressure Mean BP Systolic BP Diastolic Blood Pressure Source Blood Pressure Position Blood Pressure Location Pulse Ox 96 96 Oxygen Delivery Method 11/09/23 02:33 11/09/23 02:33 11/09/23 02:34 Temperature Temperature Source Pulse Rate 110 H Respiratory Rate Blood Pressure 122/70 H Blood Pressure Mean BP Systolic 122 BP Diastolic 70 Blood Pressure Source Blood Pressure Position Blood Pressure Location Pulse Ox 96 Oxygen Delivery Method 11/09/23 02:34 11/09/23 02:35 11/09/23 02:35 Temperature Temperature Source Temporal Pulse Rate 96 Respiratory Rate 16 Blood Pressure Blood Pressure Mean BP Systolic BP Diastolic Blood Pressure Source Blood Pressure Position Blood Pressure Location Pulse Ox Oxygen Delivery Method 11/09/23 02:35 11/09/23 02:38 11/09/23 02:38 Temperature 98.7 F Temperature Source Pulse Rate 114 H Respiratory Rate Blood Pressure Blood Pressure Mean BP Systolic BP Diastolic Blood Pressure Source Blood Pressure Position Blood Pressure Location Pulse Ox 97 Oxygen Delivery Method 11/09/23 02:43 11/09/23 02:43 11/09/23 02:46 Temperature Temperature Source Pulse Rate 102 H 91 Respiratory Rate Blood Pressure Blood Pressure Mean BP Systolic BP Diastolic Blood Pressure Source Blood Pressure Position Blood Pressure Location Pulse Ox 97 Oxygen Delivery Method 11/09/23 02:46 11/09/23 02:49 11/09/23 02:49 Temperature Temperature Source Pulse Rate 107 H Respiratory Rate Blood Pressure 119/62 Blood Pressure Mean BP Systolic 119 BP Diastolic 62 Blood Pressure Source Blood Pressure Position Blood Pressure Location Pulse Ox 93 Oxygen Delivery Method 11/09/23 02:49 11/09/23 02:49 11/09/23 02:50 Temperature Temperature Source Pulse Rate 102 H Respiratory Rate 16 Blood Pressure Blood Pressure Mean BP Systolic BP Diastolic Blood Pressure Source Blood Pressure Position Blood Pressure Location Pulse Ox 96 Oxygen Delivery Method 11/09/23 02:54 11/09/23 02:54 11/09/23 02:59 Temperature Temperature Source Pulse Rate 92 98 Respiratory Rate Blood Pressure Blood Pressure Mean BP Systolic BP Diastolic Blood Pressure Source Blood Pressure Position Blood Pressure Location Pulse Ox 97 Oxygen Delivery Method 11/09/23 02:59 11/09/23 03:04 11/09/23 03:04 Temperature Temperature Source Pulse Rate 94 Respiratory Rate Blood Pressure 118/63 Blood Pressure Mean BP Systolic 118 BP Diastolic 63 Blood Pressure Source Blood Pressure Position Blood Pressure Location Pulse Ox 96 Oxygen Delivery Method 11/09/23 03:04 11/09/23 03:08 11/09/23 03:08 Temperature Temperature Source Pulse Rate 131 H Respiratory Rate 16 Blood Pressure Blood Pressure Mean BP Systolic BP Diastolic Blood Pressure Source Blood Pressure Position Blood Pressure Location Pulse Ox 98 Oxygen Delivery Method 11/09/23 03:13 11/09/23 03:13 11/09/23 03:18 Temperature Temperature Source Pulse Rate 133 H 131 H Respiratory Rate Blood Pressure Blood Pressure Mean BP Systolic BP Diastolic Blood Pressure Source Blood Pressure Position Blood Pressure Location Pulse Ox 97 Oxygen Delivery Method 11/09/23 03:18 11/09/23 03:19 11/09/23 03:19 Temperature Temperature Source Pulse Rate 129 H Respiratory Rate Blood Pressure 131/60 H Blood Pressure Mean BP Systolic 131 BP Diastolic 60 Blood Pressure Source Blood Pressure Position Blood Pressure Location Pulse Ox 98 Oxygen Delivery Method 11/09/23 03:20 11/09/23 03:23 11/09/23 03:23 Temperature Temperature Source Pulse Rate 111 H Respiratory Rate 16 Blood Pressure Blood Pressure Mean BP Systolic BP Diastolic Blood Pressure Source Blood Pressure Position Blood Pressure Location Pulse Ox 97 Oxygen Delivery Method 11/09/23 03:28 11/09/23 03:28 11/09/23 03:33 Temperature Temperature Source Pulse Rate 97 116 H Respiratory Rate Blood Pressure Blood Pressure Mean BP Systolic BP Diastolic Blood Pressure Source Blood Pressure Position Blood Pressure Location Pulse Ox 97 Oxygen Delivery Method 11/09/23 03:33 11/09/23 03:35 11/09/23 03:36 Temperature Temperature Source Pulse Rate Respiratory Rate 16 Blood Pressure 135/83 H Blood Pressure Mean BP Systolic 135 BP Diastolic 83 Blood Pressure Source Blood Pressure Position Blood Pressure Location Pulse Ox 98 Oxygen Delivery Method 11/09/23 03:36 11/09/23 07:51 11/09/23 07:51 Temperature 98.7 F Temperature Source Temporal Temporal Pulse Rate 116 H 106 H Respiratory Rate 18 Blood Pressure 130/78 H Blood Pressure Mean 95 BP Systolic BP Diastolic Blood Pressure Source Monitor Blood Pressure Position Semi-Fowlers Blood Pressure Location Left Arm Pulse Ox Oxygen Delivery Method Room Air Weight: 110.223 kg Vital Signs Temp Pulse Resp BP Pulse Ox O2 Del Method 11/09/23 07:51 98.7 F 106 H 18 130/78 H Room Air 11/09/23 03:36 116 H 11/09/23 03:36 135/83 H 11/09/23 03:35 16 11/09/23 03:33 98 11/09/23 03:33 116 H 11/09/23 03:28 97 11/09/23 03:28 97 11/09/23 03:23 97 11/09/23 03:23 111 H 11/09/23 03:20 16 11/09/23 03:19 129 H 11/09/23 03:19 131/60 H 11/09/23 03:18 98 11/09/23 03:18 131 H 11/09/23 03:13 97 11/09/23 03:13 133 H 11/09/23 03:08 98 11/09/23 03:08 131 H 11/09/23 03:04 16 11/09/23 03:04 94 11/09/23 03:04 118/63 11/09/23 02:59 96 11/09/23 02:59 98 11/09/23 02:54 97 11/09/23 02:54 92 11/09/23 02:50 16 11/09/23 02:49 96 11/09/23 02:49 102 H 11/09/23 02:49 107 H 11/09/23 02:49 119/62 11/09/23 02:46 93 11/09/23 02:46 91 11/09/23 02:43 97 11/09/23 02:43 102 H 11/09/23 02:38 97 11/09/23 02:38 114 H 11/09/23 02:35 98.7 F 11/09/23 02:35 16 11/09/23 02:34 96 11/09/23 02:34 122/70 H 11/09/23 02:33 96 11/09/23 02:33 110 H 11/09/23 02:28 96 11/09/23 02:28 119 H 11/09/23 02:22 96 11/09/23 02:22 116 H 11/09/23 02:20 16 11/09/23 02:19 110 H 11/09/23 02:19 121/68 H 11/09/23 02:17 96 11/09/23 02:17 112 H 11/09/23 02:12 96 11/09/23 02:12 111 H 11/09/23 02:07 95 11/09/23 02:07 116 H 11/09/23 02:05 16 11/09/23 02:02 95 11/09/23 02:02 108 H 11/09/23 01:57 95 11/09/23 01:57 114 H 11/09/23 01:52 95 11/09/23 01:52 105 H 11/09/23 01:50 16 11/09/23 01:47 95 11/09/23 01:47 119 H 11/09/23 01:42 95 11/09/23 01:42 118 H 11/09/23 01:38 93 11/09/23 01:38 102 H 11/09/23 01:37 96 11/09/23 01:37 114 H 11/09/23 01:35 98.2 F 11/09/23 01:35 16 11/09/23 01:34 122 H 11/09/23 01:34 119/71 11/09/23 01:32 99 11/09/23 01:32 137 H 11/09/23 01:27 98 11/09/23 01:27 160 H 11/09/23 01:22 98 11/09/23 01:22 105 H 11/09/23 01:17 96 11/09/23 01:17 113 H 11/09/23 01:12 99 11/09/23 01:12 104 H 11/09/23 01:07 96 11/09/23 01:07 84 11/09/23 01:02 95 11/09/23 01:02 76 11/09/23 00:57 100 11/09/23 00:57 72 11/09/23 00:52 100 11/09/23 00:52 71 11/09/23 00:47 100 11/09/23 00:47 76 11/09/23 00:47 76 11/09/23 00:47 118/64 11/09/23 00:42 100 11/09/23 00:42 88 11/09/23 00:38 112 H 11/09/23 00:38 188/69 H 11/09/23 00:37 99 11/09/23 00:37 107 H 11/09/23 00:32 97 11/09/23 00:32 84 11/08/23 23:08 106 H 11/08/23 23:08 127/62 H 11/08/23 23:07 98.7 F 11/08/23 23:07 16 11/08/23 22:02 99.2 F H 11/08/23 22:02 98 11/08/23 22:02 14 11/08/23 22:02 104 H 11/08/23 22:02 107 H 11/08/23 22:02 123/71 H 11/08/23 21:18 99.0 F 11/08/23 21:18 16 11/08/23 21:18 90 11/08/23 21:18 121/64 H 11/08/23 20:20 97.4 F L 11/08/23 20:20 16 11/08/23 20:20 86 11/08/23 20:20 130/63 H 11/08/23 20:19 97 11/08/23 20:19 84 11/08/23 19:33 98.8 F 11/08/23 19:33 16 11/08/23 19:31 94 11/08/23 19:31 122/61 H 11/08/23 19:30 99 11/08/23 19:30 81 11/08/23 19:29 82 11/08/23 18:17 79 11/08/23 18:17 140/63 H 11/08/23 18:07 82 11/08/23 18:07 122/58 H 11/08/23 18:02 85 11/08/23 18:02 124/59 H 11/08/23 17:58 98.2 F 11/08/23 17:58 100 11/08/23 17:58 16 11/08/23 17:58 94 11/08/23 17:58 111 H 11/08/23 17:58 134/83 H 11/08/23 17:54 88 11/08/23 17:54 133/91 H 11/08/23 17:32 62 11/08/23 17:32 88/49 L 11/08/23 17:31 63 11/08/23 17:31 95/54 L 11/08/23 17:21 61 11/08/23 17:21 102/52 L 11/08/23 17:12 66 11/08/23 17:12 103/55 L 11/08/23 16:59 71 11/08/23 16:59 92/48 L 11/08/23 16:39 97.7 F L 11/08/23 16:39 100 11/08/23 16:39 14 11/08/23 16:39 65 11/08/23 16:39 117/58 L 11/08/23 15:49 16 11/08/23 15:48 76 11/08/23 15:48 107/55 L 11/08/23 15:46 100 11/08/23 15:46 76 11/08/23 15:45 14 11/08/23 15:42 75 11/08/23 15:42 125/68 H 11/08/23 15:41 99 11/08/23 15:41 77 11/08/23 15:39 14 11/08/23 15:37 97.2 F L 11/08/23 15:36 100 11/08/23 15:36 80 11/08/23 15:36 120/71 11/08/23 15:33 14 11/08/23 15:31 100 11/08/23 15:31 76 11/08/23 15:31 125/68 H 11/08/23 15:29 16 11/08/23 15:28 74 11/08/23 15:28 124/70 H 11/08/23 15:26 100 11/08/23 15:26 79 11/08/23 15:24 16 11/08/23 15:24 93 11/08/23 15:24 78 11/08/23 15:21 100 11/08/23 15:21 74 11/08/23 15:21 74 11/08/23 15:21 123/57 H 11/08/23 15:17 74 11/08/23 15:17 124/56 H 11/08/23 15:16 100 11/08/23 15:16 83 11/08/23 15:12 84 11/08/23 15:12 126/68 H 11/08/23 15:11 99 11/08/23 15:11 86 11/08/23 15:07 86 11/08/23 15:07 136/70 H 11/08/23 15:06 99 11/08/23 15:06 89 11/08/23 15:01 97 11/08/23 15:01 100 11/08/23 15:01 98 11/08/23 15:01 140/88 H 11/08/23 14:38 81 11/08/23 14:38 122 H 11/08/23 14:07 97.5 F L 11/08/23 14:07 98 11/08/23 14:07 18 11/08/23 14:07 79 11/08/23 14:07 142/74 H 11/08/23 13:14 80 11/08/23 13:14 135/77 H 11/08/23 13:12 98.1 F 11/08/23 13:12 98 11/08/23 13:12 16 11/08/23 13:12 77 11/08/23 13:11 81 11/08/23 13:11 229 H 11/08/23 12:09 98 11/08/23 12:09 74 11/08/23 12:06 81 11/08/23 12:06 123/74 H 11/08/23 12:04 98.3 F 11/08/23 12:04 99 11/08/23 12:04 16 11/08/23 12:04 77 11/08/23 11:00 98 11/08/23 11:00 74 11/08/23 10:59 97.6 F L 11/08/23 10:59 16 11/08/23 10:59 73 11/08/23 10:59 144/76 H 11/08/23 09:55 97.5 F L 11/08/23 09:55 14 11/08/23 09:53 73 11/08/23 09:53 138/77 H 11/08/23 07:32 98.4 F 11/08/23 07:32 16 11/08/23 07:32 98 11/08/23 07:32 97 11/08/23 07:32 137/80 H Lab tests last 48H 11/08/23 11/09/23 11/09/23 07:45 00:30 05:30 WBC 13.0 H 16.9 H 22.4 H RBC 4.43 3.76 L 3.68 L Hgb 12.5 10.7 L 10.8 L Hct 37.1 31.7 L 30.7 L MCV 83.7 84.3 83.4 MCH 28.2 28.5 29.3 MCHC 33.7 33.8 35.2 RDW Std Deviation 42.2 42.5 41.3 RDW Coeff of [place]est[place] 14.0 13.9 13.8 Plt Count 166 145 L 149 L MPV 8.9 9.3 8.8 Immature Gran % (Auto) 2.100 H 0.900 0.900 Neut % (Auto) 80.6 H 86.0 H 89.2 H Lymph % (Auto) 10.3 L 6.5 L 4.5 L [place] % (Auto) 5.7 6.3 5.2 Eos % (Auto) 0.9 0.1 0.1 Baso % (Auto) 0.4 0.2 0.1 Absolute Neuts (auto) 10.5 H 14.5 H 19.9 H Absolute Lymphs (auto) 1.34 1.10 1.01 Nucleated RBC % 0 0 0 PT 14.7 INR 1.2 Fibrinogen 492 H Syphilis Total Ab Non-reactive Blood Type O POSITIVE Antibody Screen NEGATIVE Vital Signs Vital Signs Vital Signs: 11/08/23 09:53 11/08/23 09:53 11/08/23 09:55 Temperature Temperature Source Temporal Pulse Rate 73 Respiratory Rate Blood Pressure 138/77 H Blood Pressure Mean BP Systolic 138 BP Diastolic 77 Blood Pressure Source Blood Pressure Position Blood Pressure Location Pulse Ox Oxygen Delivery Method 11/08/23 09:55 11/08/23 09:55 11/08/23 10:59 Temperature 97.5 F L Temperature Source Temporal Pulse Rate Respiratory Rate 14 Blood Pressure Blood Pressure Mean BP Systolic BP Diastolic Blood Pressure Source Blood Pressure Position Blood Pressure Location Pulse Ox Oxygen Delivery Method 11/08/23 10:59 11/08/23 10:59 11/08/23 10:59 Temperature Temperature Source Pulse Rate 73 Respiratory Rate 16 Blood Pressure 144/76 H Blood Pressure Mean BP Systolic 144 BP Diastolic 76 Blood Pressure Source Blood Pressure Position Blood Pressure Location Pulse Ox Oxygen Delivery Method 11/08/23 10:59 11/08/23 11:00 11/08/23 11:00 Temperature 97.6 F L Temperature Source Pulse Rate 74 Respiratory Rate Blood Pressure Blood Pressure Mean BP Systolic BP Diastolic Blood Pressure Source Blood Pressure Position Blood Pressure Location Pulse Ox 98 Oxygen Delivery Method 11/08/23 12:04 11/08/23 12:04 11/08/23 12:04 Temperature Temperature Source Temporal Pulse Rate 77 Respiratory Rate 16 Blood Pressure Blood Pressure Mean BP Systolic BP Diastolic Blood Pressure Source Blood Pressure Position Blood Pressure Location Pulse Ox Oxygen Delivery Method 11/08/23 12:04 11/08/23 12:04 11/08/23 12:06 Temperature 98.3 F Temperature Source Pulse Rate Respiratory Rate Blood Pressure 123/74 H Blood Pressure Mean BP Systolic 123 BP Diastolic 74 Blood Pressure Source Blood Pressure Position Blood Pressure Location Pulse Ox 99 Oxygen Delivery Method 11/08/23 12:06 11/08/23 12:09 11/08/23 12:09 Temperature Temperature Source Pulse Rate 81 74 Respiratory Rate Blood Pressure Blood Pressure Mean BP Systolic BP Diastolic Blood Pressure Source Blood Pressure Position Blood Pressure Location Pulse Ox 98 Oxygen Delivery Method 11/08/23 13:11 11/08/23 13:11 11/08/23 13:12 Temperature Temperature Source Temporal Pulse Rate 229 H Respiratory Rate Blood Pressure Blood Pressure Mean BP Systolic BP Diastolic Blood Pressure Source Blood Pressure Position Blood Pressure Location Pulse Ox 81 Oxygen Delivery Method 11/08/23 13:12 11/08/23 13:12 11/08/23 13:12 Temperature Temperature Source Pulse Rate 77 Respiratory Rate 16 Blood Pressure Blood Pressure Mean BP Systolic BP Diastolic Blood Pressure Source Blood Pressure Position Blood Pressure Location Pulse Ox 98 Oxygen Delivery Method 11/08/23 13:12 11/08/23 13:14 11/08/23 13:14 Temperature 98.1 F Temperature Source Pulse Rate 80 Respiratory Rate Blood Pressure 135/77 H Blood Pressure Mean BP Systolic 135 BP Diastolic 77 Blood Pressure Source Blood Pressure Position Blood Pressure Location Pulse Ox Oxygen Delivery Method 11/08/23 14:07 11/08/23 14:07 11/08/23 14:07 Temperature Temperature Source Temporal Pulse Rate 79 Respiratory Rate Blood Pressure 142/74 H Blood Pressure Mean BP Systolic 142 BP Diastolic 74 Blood Pressure Source Blood Pressure Position Blood Pressure Location Pulse Ox Oxygen Delivery Method 11/08/23 14:07 11/08/23 14:07 11/08/23 14:07 Temperature 97.5 F L Temperature Source Pulse Rate Respiratory Rate 18 Blood Pressure Blood Pressure Mean BP Systolic BP Diastolic Blood Pressure Source Blood Pressure Position Blood Pressure Location Pulse Ox 98 Oxygen Delivery Method 11/08/23 14:38 11/08/23 14:38 11/08/23 15:01 Temperature Temperature Source Pulse Rate 122 H Respiratory Rate Blood Pressure 140/88 H Blood Pressure Mean BP Systolic 140 BP Diastolic 88 Blood Pressure Source Blood Pressure Position Blood Pressure Location Pulse Ox 81 Oxygen Delivery Method 11/08/23 15:01 11/08/23 15:01 11/08/23 15:01 Temperature Temperature Source Pulse Rate 98 97 Respiratory Rate Blood Pressure Blood Pressure Mean BP Systolic BP Diastolic Blood Pressure Source Blood Pressure Position Blood Pressure Location Pulse Ox 100 Oxygen Delivery Method 11/08/23 15:06 11/08/23 15:06 11/08/23 15:07 Temperature Temperature Source Pulse Rate 89 Respiratory Rate Blood Pressure 136/70 H Blood Pressure Mean BP Systolic 136 BP Diastolic 70 Blood Pressure Source Blood Pressure Position Blood Pressure Location Pulse Ox 99 Oxygen Delivery Method 11/08/23 15:07 11/08/23 15:11 11/08/23 15:11 Temperature Temperature Source Pulse Rate 86 86 Respiratory Rate Blood Pressure Blood Pressure Mean BP Systolic BP Diastolic Blood Pressure Source Blood Pressure Position Blood Pressure Location Pulse Ox 99 Oxygen Delivery Method 11/08/23 15:12 11/08/23 15:12 11/08/23 15:16 Temperature Temperature Source Pulse Rate 84 83 Respiratory Rate Blood Pressure 126/68 H Blood Pressure Mean BP Systolic 126 BP Diastolic 68 Blood Pressure Source Blood Pressure Position Blood Pressure Location Pulse Ox Oxygen Delivery Method 11/08/23 15:16 11/08/23 15:17 11/08/23 15:17 Temperature Temperature Source Pulse Rate 74 Respiratory Rate Blood Pressure 124/56 H Blood Pressure Mean BP Systolic 124 BP Diastolic 56 Blood Pressure Source Blood Pressure Position Blood Pressure Location Pulse Ox 100 Oxygen Delivery Method 11/08/23 15:21 11/08/23 15:21 11/08/23 15:21 Temperature Temperature Source Pulse Rate 74 74 Respiratory Rate Blood Pressure 123/57 H Blood Pressure Mean BP Systolic 123 BP Diastolic 57 Blood Pressure Source Blood Pressure Position Blood Pressure Location Pulse Ox Oxygen Delivery Method 11/08/23 15:21 11/08/23 15:24 11/08/23 15:24 Temperature Temperature Source Pulse Rate 78 Respiratory Rate Blood Pressure Blood Pressure Mean BP Systolic BP Diastolic Blood Pressure Source Blood Pressure Position Blood Pressure Location Pulse Ox 100 93 Oxygen Delivery Method 11/08/23 15:24 11/08/23 15:26 11/08/23 15:26 Temperature Temperature Source Pulse Rate 79 Respiratory Rate 16 Blood Pressure Blood Pressure Mean BP Systolic BP Diastolic Blood Pressure Source Blood Pressure Position Blood Pressure Location Pulse Ox 100 Oxygen Delivery Method 11/08/23 15:28 11/08/23 15:28 11/08/23 15:29 Temperature Temperature Source Pulse Rate 74 Respiratory Rate 16 Blood Pressure 124/70 H Blood Pressure Mean BP Systolic 124 BP Diastolic 70 Blood Pressure Source Blood Pressure Position Blood Pressure Location Pulse Ox Oxygen Delivery Method 11/08/23 15:31 11/08/23 15:31 11/08/23 15:31 Temperature Temperature Source Pulse Rate 76 Respiratory Rate Blood Pressure 125/68 H Blood Pressure Mean BP Systolic 125 BP Diastolic 68 Blood Pressure Source Blood Pressure Position Blood Pressure Location Pulse Ox 100 Oxygen Delivery Method 11/08/23 15:33 11/08/23 15:36 11/08/23 15:36 Temperature Temperature Source Pulse Rate 80 Respiratory Rate 14 Blood Pressure 120/71 Blood Pressure Mean BP Systolic 120 BP Diastolic 71 Blood Pressure Source Blood Pressure Position Blood Pressure Location Pulse Ox Oxygen Delivery Method 11/08/23 15:36 11/08/23 15:37 11/08/23 15:37 Temperature 97.2 F L Temperature Source Temporal Pulse Rate Respiratory Rate Blood Pressure Blood Pressure Mean BP Systolic BP Diastolic Blood Pressure Source Blood Pressure Position Blood Pressure Location Pulse Ox 100 Oxygen Delivery Method 11/08/23 15:39 11/08/23 15:41 11/08/23 15:41 Temperature Temperature Source Pulse Rate 77 Respiratory Rate 14 Blood Pressure Blood Pressure Mean BP Systolic BP Diastolic Blood Pressure Source Blood Pressure Position Blood Pressure Location Pulse Ox 99 Oxygen Delivery Method 11/08/23 15:42 11/08/23 15:42 11/08/23 15:45 Temperature Temperature Source Pulse Rate 75 Respiratory Rate 14 Blood Pressure 125/68 H Blood Pressure Mean BP Systolic 125 BP Diastolic 68 Blood Pressure Source Blood Pressure Position Blood Pressure Location Pulse Ox Oxygen Delivery Method 11/08/23 15:46 11/08/23 15:46 11/08/23 15:48 Temperature Temperature Source Pulse Rate 76 Respiratory Rate Blood Pressure 107/55 L Blood Pressure Mean BP Systolic 107 BP Diastolic 55 Blood Pressure Source Blood Pressure Position Blood Pressure Location Pulse Ox 100 Oxygen Delivery Method 11/08/23 15:48 11/08/23 15:49 11/08/23 16:39 Temperature Temperature Source Temporal Pulse Rate 76 Respiratory Rate 16 Blood Pressure Blood Pressure Mean BP Systolic BP Diastolic Blood Pressure Source Blood Pressure Position Blood Pressure Location Pulse Ox Oxygen Delivery Method 11/08/23 16:39 11/08/23 16:39 11/08/23 16:39 Temperature Temperature Source Pulse Rate 65 Respiratory Rate 14 Blood Pressure 117/58 L Blood Pressure Mean BP Systolic 117 BP Diastolic 58 Blood Pressure Source Blood Pressure Position Blood Pressure Location Pulse Ox Oxygen Delivery Method 11/08/23 16:39 11/08/23 16:39 11/08/23 16:59 Temperature 97.7 F L Temperature Source Pulse Rate Respiratory Rate Blood Pressure 92/48 L Blood Pressure Mean BP Systolic 92 BP Diastolic 48 Blood Pressure Source Blood Pressure Position Blood Pressure Location Pulse Ox 100 Oxygen Delivery Method 11/08/23 16:59 11/08/23 17:12 11/08/23 17:12 Temperature Temperature Source Pulse Rate 71 66 Respiratory Rate Blood Pressure 103/55 L Blood Pressure Mean BP Systolic 103 BP Diastolic 55 Blood Pressure Source Blood Pressure Position Blood Pressure Location Pulse Ox Oxygen Delivery Method 11/08/23 17:21 11/08/23 17:21 11/08/23 17:31 Temperature Temperature Source Pulse Rate 61 Respiratory Rate Blood Pressure 102/52 L 95/54 L Blood Pressure Mean BP Systolic 102 95 BP Diastolic 52 54 Blood Pressure Source Blood Pressure Position Blood Pressure Location Pulse Ox Oxygen Delivery Method 11/08/23 17:31 11/08/23 17:32 11/08/23 17:32 Temperature Temperature Source Pulse Rate 63 62 Respiratory Rate Blood Pressure 88/49 L Blood Pressure Mean BP Systolic 88 BP Diastolic 49 Blood Pressure Source Blood Pressure Position Blood Pressure Location Pulse Ox Oxygen Delivery Method 11/08/23 17:54 11/08/23 17:54 11/08/23 17:58 Temperature Temperature Source Pulse Rate 88 Respiratory Rate Blood Pressure 133/91 H 134/83 H Blood Pressure Mean BP Systolic 133 134 BP Diastolic 91 83 Blood Pressure Source Blood Pressure Position Blood Pressure Location Pulse Ox Oxygen Delivery Method 11/08/23 17:58 11/08/23 17:58 11/08/23 17:58 Temperature Temperature Source Temporal Pulse Rate 111 H 94 Respiratory Rate Blood Pressure Blood Pressure Mean BP Systolic BP Diastolic Blood Pressure Source Blood Pressure Position Blood Pressure Location Pulse Ox Oxygen Delivery Method 11/08/23 17:58 11/08/23 17:58 11/08/23 17:58 Temperature 98.2 F Temperature Source Pulse Rate Respiratory Rate 16 Blood Pressure Blood Pressure Mean BP Systolic BP Diastolic Blood Pressure Source Blood Pressure Position Blood Pressure Location Pulse Ox 100 Oxygen Delivery Method 11/08/23 18:02 11/08/23 18:02 11/08/23 18:07 Temperature Temperature Source Pulse Rate 85 Respiratory Rate Blood Pressure 124/59 H 122/58 H Blood Pressure Mean BP Systolic 124 122 BP Diastolic 59 58 Blood Pressure Source Blood Pressure Position Blood Pressure Location Pulse Ox Oxygen Delivery Method 11/08/23 18:07 11/08/23 18:17 11/08/23 18:17 Temperature Temperature Source Pulse Rate 82 79 Respiratory Rate Blood Pressure 140/63 H Blood Pressure Mean BP Systolic 140 BP Diastolic 63 Blood Pressure Source Blood Pressure Position Blood Pressure Location Pulse Ox Oxygen Delivery Method 11/08/23 19:29 11/08/23 19:30 11/08/23 19:30 Temperature Temperature Source Pulse Rate 81 Respiratory Rate Blood Pressure Blood Pressure Mean BP Systolic BP Diastolic Blood Pressure Source Blood Pressure Position Blood Pressure Location Pulse Ox 82 99 Oxygen Delivery Method 11/08/23 19:31 11/08/23 19:31 11/08/23 19:33 Temperature Temperature Source Temporal Pulse Rate 94 Respiratory Rate Blood Pressure 122/61 H Blood Pressure Mean BP Systolic 122 BP Diastolic 61 Blood Pressure Source Blood Pressure Position Blood Pressure Location Pulse Ox Oxygen Delivery Method 11/08/23 19:33 11/08/23 19:33 11/08/23 20:19 Temperature 98.8 F Temperature Source Pulse Rate 84 Respiratory Rate 16 Blood Pressure Blood Pressure Mean BP Systolic BP Diastolic Blood Pressure Source Blood Pressure Position Blood Pressure Location Pulse Ox Oxygen Delivery Method 11/08/23 20:19 11/08/23 20:20 11/08/23 20:20 Temperature Temperature Source Pulse Rate 86 Respiratory Rate Blood Pressure 130/63 H Blood Pressure Mean BP Systolic 130 BP Diastolic 63 Blood Pressure Source Blood Pressure Position Blood Pressure Location Pulse Ox 97 Oxygen Delivery Method 11/08/23 20:20 11/08/23 20:20 11/08/23 20:20 Temperature 97.4 F L Temperature Source Temporal Pulse Rate Respiratory Rate 16 Blood Pressure Blood Pressure Mean BP Systolic BP Diastolic Blood Pressure Source Blood Pressure Position Blood Pressure Location Pulse Ox Oxygen Delivery Method 11/08/23 21:18 11/08/23 21:18 11/08/23 21:18 Temperature Temperature Source Temporal Pulse Rate 90 Respiratory Rate Blood Pressure 121/64 H Blood Pressure Mean BP Systolic 121 BP Diastolic 64 Blood Pressure Source Blood Pressure Position Blood Pressure Location Pulse Ox Oxygen Delivery Method 11/08/23 21:18 11/08/23 21:18 11/08/23 22:02 Temperature 99.0 F Temperature Source Pulse Rate Respiratory Rate 16 Blood Pressure 123/71 H Blood Pressure Mean BP Systolic 123 BP Diastolic 71 Blood Pressure Source Blood Pressure Position Blood Pressure Location Pulse Ox Oxygen Delivery Method 11/08/23 22:02 11/08/23 22:02 11/08/23 22:02 Temperature Temperature Source Temporal Pulse Rate 107 H 104 H Respiratory Rate Blood Pressure Blood Pressure Mean BP Systolic BP Diastolic Blood Pressure Source Blood Pressure Position Blood Pressure Location Pulse Ox Oxygen Delivery Method 11/08/23 22:02 11/08/23 22:02 11/08/23 22:02 Temperature 99.2 F H Temperature Source Pulse Rate Respiratory Rate 14 Blood Pressure Blood Pressure Mean BP Systolic BP Diastolic Blood Pressure Source Blood Pressure Position Blood Pressure Location Pulse Ox 98 Oxygen Delivery Method 11/08/23 23:07 11/08/23 23:07 11/08/23 23:07 Temperature 98.7 F Temperature Source Temporal Pulse Rate Respiratory Rate 16 Blood Pressure Blood Pressure Mean BP Systolic BP Diastolic Blood Pressure Source Blood Pressure Position Blood Pressure Location Pulse Ox Oxygen Delivery Method 11/08/23 23:08 11/08/23 23:08 11/09/23 00:32 Temperature Temperature Source Pulse Rate 106 H 84 Respiratory Rate Blood Pressure 127/62 H Blood Pressure Mean BP Systolic 127 BP Diastolic 62 Blood Pressure Source Blood Pressure Position Blood Pressure Location Pulse Ox Oxygen Delivery Method 11/09/23 00:32 11/09/23 00:37 11/09/23 00:37 Temperature Temperature Source Pulse Rate 107 H Respiratory Rate Blood Pressure Blood Pressure Mean BP Systolic BP Diastolic Blood Pressure Source Blood Pressure Position Blood Pressure Location Pulse Ox 97 99 Oxygen Delivery Method 11/09/23 00:38 11/09/23 00:38 11/09/23 00:42 Temperature Temperature Source Pulse Rate 112 H 88 Respiratory Rate Blood Pressure 188/69 H Blood Pressure Mean BP Systolic 188 BP Diastolic 69 Blood Pressure Source Blood Pressure Position Blood Pressure Location Pulse Ox Oxygen Delivery Method 11/09/23 00:42 11/09/23 00:47 11/09/23 00:47 Temperature Temperature Source Pulse Rate 76 Respiratory Rate Blood Pressure 118/64 Blood Pressure Mean BP Systolic 118 BP Diastolic 64 Blood Pressure Source Blood Pressure Position Blood Pressure Location Pulse Ox 100 Oxygen Delivery Method 11/09/23 00:47 11/09/23 00:47 11/09/23 00:52 Temperature Temperature Source Pulse Rate 76 71 Respiratory Rate Blood Pressure Blood Pressure Mean BP Systolic BP Diastolic Blood Pressure Source Blood Pressure Position Blood Pressure Location Pulse Ox 100 Oxygen Delivery Method 11/09/23 00:52 11/09/23 00:57 11/09/23 00:57 Temperature Temperature Source Pulse Rate 72 Respiratory Rate Blood Pressure Blood Pressure Mean BP Systolic BP Diastolic Blood Pressure Source Blood Pressure Position Blood Pressure Location Pulse Ox 100 100 Oxygen Delivery Method 11/09/23 01:02 11/09/23 01:02 11/09/23 01:07 Temperature Temperature Source Pulse Rate 76 84 Respiratory Rate Blood Pressure Blood Pressure Mean BP Systolic BP Diastolic Blood Pressure Source Blood Pressure Position Blood Pressure Location Pulse Ox 95 Oxygen Delivery Method 11/09/23 01:07 11/09/23 01:12 11/09/23 01:12 Temperature Temperature Source Pulse Rate 104 H Respiratory Rate Blood Pressure Blood Pressure Mean BP Systolic BP Diastolic Blood Pressure Source Blood Pressure Position Blood Pressure Location Pulse Ox 96 99 Oxygen Delivery Method 11/09/23 01:17 11/09/23 01:17 11/09/23 01:22 Temperature Temperature Source Pulse Rate 113 H 105 H Respiratory Rate Blood Pressure Blood Pressure Mean BP Systolic BP Diastolic Blood Pressure Source Blood Pressure Position Blood Pressure Location Pulse Ox 96 Oxygen Delivery Method 11/09/23 01:22 11/09/23 01:27 11/09/23 01:27 Temperature Temperature Source Pulse Rate 160 H Respiratory Rate Blood Pressure Blood Pressure Mean BP Systolic BP Diastolic Blood Pressure Source Blood Pressure Position Blood Pressure Location Pulse Ox 98 98 Oxygen Delivery Method 11/09/23 01:32 11/09/23 01:32 11/09/23 01:34 Temperature Temperature Source Pulse Rate 137 H Respiratory Rate Blood Pressure 119/71 Blood Pressure Mean BP Systolic 119 BP Diastolic 71 Blood Pressure Source Blood Pressure Position Blood Pressure Location Pulse Ox 99 Oxygen Delivery Method 11/09/23 01:34 11/09/23 01:35 11/09/23 01:35 Temperature Temperature Source Temporal Pulse Rate 122 H Respiratory Rate 16 Blood Pressure Blood Pressure Mean BP Systolic BP Diastolic Blood Pressure Source Blood Pressure Position Blood Pressure Location Pulse Ox Oxygen Delivery Method 11/09/23 01:35 11/09/23 01:37 11/09/23 01:37 Temperature 98.2 F Temperature Source Pulse Rate 114 H Respiratory Rate Blood Pressure Blood Pressure Mean BP Systolic BP Diastolic Blood Pressure Source Blood Pressure Position Blood Pressure Location Pulse Ox 96 Oxygen Delivery Method 11/09/23 01:38 11/09/23 01:38 11/09/23 01:42 Temperature Temperature Source Pulse Rate 102 H 118 H Respiratory Rate Blood Pressure Blood Pressure Mean BP Systolic BP Diastolic Blood Pressure Source Blood Pressure Position Blood Pressure Location Pulse Ox 93 Oxygen Delivery Method 11/09/23 01:42 11/09/23 01:47 11/09/23 01:47 Temperature Temperature Source Pulse Rate 119 H Respiratory Rate Blood Pressure Blood Pressure Mean BP Systolic BP Diastolic Blood Pressure Source Blood Pressure Position Blood Pressure Location Pulse Ox 95 95 Oxygen Delivery Method 11/09/23 01:50 11/09/23 01:52 11/09/23 01:52 Temperature Temperature Source Pulse Rate 105 H Respiratory Rate 16 Blood Pressure Blood Pressure Mean BP Systolic BP Diastolic Blood Pressure Source Blood Pressure Position Blood Pressure Location Pulse Ox 95 Oxygen Delivery Method 11/09/23 01:57 11/09/23 01:57 11/09/23 02:02 Temperature Temperature Source Pulse Rate 114 H 108 H Respiratory Rate Blood Pressure Blood Pressure Mean BP Systolic BP Diastolic Blood Pressure Source Blood Pressure Position Blood Pressure Location Pulse Ox 95 Oxygen Delivery Method 11/09/23 02:02 11/09/23 02:05 11/09/23 02:07 Temperature Temperature Source Pulse Rate 116 H Respiratory Rate 16 Blood Pressure Blood Pressure Mean BP Systolic BP Diastolic Blood Pressure Source Blood Pressure Position Blood Pressure Location Pulse Ox 95 Oxygen Delivery Method 11/09/23 02:07 11/09/23 02:12 11/09/23 02:12 Temperature Temperature Source Pulse Rate 111 H Respiratory Rate Blood Pressure Blood Pressure Mean BP Systolic BP Diastolic Blood Pressure Source Blood Pressure Position Blood Pressure Location Pulse Ox 95 96 Oxygen Delivery Method 11/09/23 02:17 11/09/23 02:17 11/09/23 02:19 Temperature Temperature Source Pulse Rate 112 H Respiratory Rate Blood Pressure 121/68 H Blood Pressure Mean BP Systolic 121 BP Diastolic 68 Blood Pressure Source Blood Pressure Position Blood Pressure Location Pulse Ox 96 Oxygen Delivery Method 11/09/23 02:19 11/09/23 02:20 11/09/23 02:22 Temperature Temperature Source Pulse Rate 110 H 116 H Respiratory Rate 16 Blood Pressure Blood Pressure Mean BP Systolic BP Diastolic Blood Pressure Source Blood Pressure Position Blood Pressure Location Pulse Ox Oxygen Delivery Method 11/09/23 02:22 11/09/23 02:28 11/09/23 02:28 Temperature Temperature Source Pulse Rate 119 H Respiratory Rate Blood Pressure Blood Pressure Mean BP Systolic BP Diastolic Blood Pressure Source Blood Pressure Position Blood Pressure Location Pulse Ox 96 96 Oxygen Delivery Method 11/09/23 02:33 11/09/23 02:33 11/09/23 02:34 Temperature Temperature Source Pulse Rate 110 H Respiratory Rate Blood Pressure 122/70 H Blood Pressure Mean BP Systolic 122 BP Diastolic 70 Blood Pressure Source Blood Pressure Position Blood Pressure Location Pulse Ox 96 Oxygen Delivery Method 11/09/23 02:34 11/09/23 02:35 11/09/23 02:35 Temperature Temperature Source Temporal Pulse Rate 96 Respiratory Rate 16 Blood Pressure Blood Pressure Mean BP Systolic BP Diastolic Blood Pressure Source Blood Pressure Position Blood Pressure Location Pulse Ox Oxygen Delivery Method 11/09/23 02:35 11/09/23 02:38 11/09/23 02:38 Temperature 98.7 F Temperature Source Pulse Rate 114 H Respiratory Rate Blood Pressure Blood Pressure Mean BP Systolic BP Diastolic Blood Pressure Source Blood Pressure Position Blood Pressure Location Pulse Ox 97 Oxygen Delivery Method 11/09/23 02:43 11/09/23 02:43 11/09/23 02:46 Temperature Temperature Source Pulse Rate 102 H 91 Respiratory Rate Blood Pressure Blood Pressure Mean BP Systolic BP Diastolic Blood Pressure Source Blood Pressure Position Blood Pressure Location Pulse Ox 97 Oxygen Delivery Method 11/09/23 02:46 11/09/23 02:49 11/09/23 02:49 Temperature Temperature Source Pulse Rate 107 H Respiratory Rate Blood Pressure 119/62 Blood Pressure Mean BP Systolic 119 BP Diastolic 62 Blood Pressure Source Blood Pressure Position Blood Pressure Location Pulse Ox 93 Oxygen Delivery Method 11/09/23 02:49 11/09/23 02:49 11/09/23 02:50 Temperature Temperature Source Pulse Rate 102 H Respiratory Rate 16 Blood Pressure Blood Pressure Mean BP Systolic BP Diastolic Blood Pressure Source Blood Pressure Position Blood Pressure Location Pulse Ox 96 Oxygen Delivery Method 11/09/23 02:54 11/09/23 02:54 11/09/23 02:59 Temperature Temperature Source Pulse Rate 92 98 Respiratory Rate Blood Pressure Blood Pressure Mean BP Systolic BP Diastolic Blood Pressure Source Blood Pressure Position Blood Pressure Location Pulse Ox 97 Oxygen Delivery Method 11/09/23 02:59 11/09/23 03:04 11/09/23 03:04 Temperature Temperature Source Pulse Rate 94 Respiratory Rate Blood Pressure 118/63 Blood Pressure Mean BP Systolic 118 BP Diastolic 63 Blood Pressure Source Blood Pressure Position Blood Pressure Location Pulse Ox 96 Oxygen Delivery Method 11/09/23 03:04 11/09/23 03:08 11/09/23 03:08 Temperature Temperature Source Pulse Rate 131 H Respiratory Rate 16 Blood Pressure Blood Pressure Mean BP Systolic BP Diastolic Blood Pressure Source Blood Pressure Position Blood Pressure Location Pulse Ox 98 Oxygen Delivery Method 11/09/23 03:13 11/09/23 03:13 11/09/23 03:18 Temperature Temperature Source Pulse Rate 133 H 131 H Respiratory Rate Blood Pressure Blood Pressure Mean BP Systolic BP Diastolic Blood Pressure Source Blood Pressure Position Blood Pressure Location Pulse Ox 97 Oxygen Delivery Method 11/09/23 03:18 11/09/23 03:19 11/09/23 03:19 Temperature Temperature Source Pulse Rate 129 H Respiratory Rate Blood Pressure 131/60 H Blood Pressure Mean BP Systolic 131 BP Diastolic 60 Blood Pressure Source Blood Pressure Position Blood Pressure Location Pulse Ox 98 Oxygen Delivery Method 11/09/23 03:20 11/09/23 03:23 11/09/23 03:23 Temperature Temperature Source Pulse Rate 111 H Respiratory Rate 16 Blood Pressure Blood Pressure Mean BP Systolic BP Diastolic Blood Pressure Source Blood Pressure Position Blood Pressure Location Pulse Ox 97 Oxygen Delivery Method 11/09/23 03:28 11/09/23 03:28 11/09/23 03:33 Temperature Temperature Source Pulse Rate 97 116 H Respiratory Rate Blood Pressure Blood Pressure Mean BP Systolic BP Diastolic Blood Pressure Source Blood Pressure Position Blood Pressure Location Pulse Ox 97 Oxygen Delivery Method 11/09/23 03:33 11/09/23 03:35 11/09/23 03:36 Temperature Temperature Source Pulse Rate Respiratory Rate 16 Blood Pressure 135/83 H Blood Pressure Mean BP Systolic 135 BP Diastolic 83 Blood Pressure Source Blood Pressure Position Blood Pressure Location Pulse Ox 98 Oxygen Delivery Method 11/09/23 03:36 11/09/23 07:51 11/09/23 07:51 Temperature 98.7 F Temperature Source Temporal Temporal Pulse Rate 116 H 106 H Respiratory Rate 18 Blood Pressure 130/78 H Blood Pressure Mean 95 BP Systolic BP Diastolic Blood Pressure Source Monitor Blood Pressure Position Semi-Fowlers Blood Pressure Location Left Arm Pulse Ox Oxygen Delivery Method Room Air Weight Weight: 110.223 kg Body Mass Index (BMI) 38.0 General Weight: 110.223 kg
--- NOTE | 2023-11-09 08:56 | NURSING ---
Dr. Megan Alcantar removes 1 gauz from pt vagina at this time. pt tolerates well, fundus firm, 1 below with scant bleeding
[2023-11-09] MEDS: Senna/Docusate Sodium 1 Tablet PO (11:31)
[2023-11-09] MEDS: Sertraline 100 MG Tablet PO (11:31)
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
[2023-11-09] MEDS: Acetaminophen 500 MG Tablet 1000 MG PO (12:05)
--- NOTE | 2023-11-09 15:24 | PN.OBGYN_ITS ---
Subjective Subjective Patient denies complaints. Objective Data Objective Data Vital Signs: Vital Signs Temp Pulse Resp BP Pulse Ox O2 Del Method 98.6 F 100 18 117/74 98 Room Air 11/09/23 11:59 11/09/23 11:59 11/09/23 11:59 11/09/23 11:59 11/09/23 03:33 11/09/23 11:59 Oxygen Delivery Method Room Air Weight: 243 lb Body Mass Index (BMI) 38.0 Intake & Output: Intake and Output for Last 24 Hours 11/07/23 11/08/23 11/09/23 23:59 23:59 23:59 Intake Total 3991.19 / 3991.19 2121.65 / 2121.65 Output Total 1450 / 1450 5500 / 5500 Balance 2541.19 / 2541.19 -3378.35 / -3378.35 Lab / Micro Data Attestation: I reviewed the patient's lab results. 11/09/23 05:30 Labs: Laboratory Results - last 24 hr 11/09/23 00:30: WBC 16.9 H, RBC 3.76 L, Hgb 10.7 L, Hct 31.7 L, MCV 84.3, MCH 28.5, MCHC 33.8, RDW Std Deviation 42.5, RDW Coeff of Celestina 13.9, Plt Count 145 L, MPV 9.3, Immature Gran % (Auto) 0.900, Neut % (Auto) 86.0 H, Lymph % (Auto) 6.5 L, [place] % (Auto) 6.3, Eos % (Auto) 0.1, Baso % (Auto) 0.2, Absolute Neuts (auto) 14.5 H, Absolute Lymphs (auto) 1.10, Nucleated RBC % 0, PT 14.7, INR 1.2, F ibrinogen 492 H 11/09/23 05:30: WBC 22.4 H, RBC 3.68 L, Hgb 10.8 L, Hct 30.7 L, MCV 83.4, MCH 29.3, MCHC 35.2, RDW Std Deviation 41.3, RDW Coeff of Celestina 13.8, Plt Count 149 L, MPV 8.8, Immature Gran % (Auto) 0.900, Neut % (Auto) 89.2 H, Lymph % (Auto) 4.5 L, [place] % (Auto) 5.2, Eos % (Auto) 0.1, Baso % (Auto) 0.1, Absolute Neuts (auto) 19.9 H, Absolute Lymphs (auto) 1.01, Nucleated RBC % 0 Assessment & Plan (1) Atony of uterus with hemorrhage: COMMENT: PPD#1 (2) (spontaneous vaginal delivery): PLAN: Plan Heme - vaginal packing removed and no active bleeding noted. CBC reviewed and will repeat tomorrow. Patient is HDS. Routine care
[2023-11-10 01:12] VITALS: BP 109/62; PULSE 96; RESP 16; TEMP 36.8; O2SAT 98
[2023-11-10 04:53] LABS: Absolute Lymphocyte Count 1.95 X10^3/uL (0.83-4.51); Absolute Neutrophil Count 12.5 X10^3/uL (2.0-7.7); Basophil# 0.04 X10^3/uL; Basophil% 0.3 % (0-1); Eosinophils% 1.3 % (0-5); Hemoglobin 8.4 g/dL (12.0-15.0); Lymphocyte # 1.95 X10^3/ul (0.83-4.51); Lymphocyte % 12.3 % (19-41); Mean Corp Hgb Conc 33.6 g/dL (32-36); Mean Corpuscular Hgb 28.6 pg (27.0-32.0); Mean Platelet Vol. 8.5 fl (6.2-12.0); Monocyte# 1.01 X10^3/uL; Monocyte% 6.4 % (0-10); NRBC Flagged by Analyzer 0 % (0-5); Neutrophil # 12.45 X10^3/uL (2.7-7.7); Neutrophil % 78.3 % (47-70); Platelet Count 141 K/mm3 (150-450); RBC Distribution Width CV 14.1 % (11.6-14.6); Red Blood Count 2.94 M/mm3 (4.2-5.4); White Blood Count 15.9 K/mm3 (4.4-11.0)
--- NOTE | 2023-11-10 08:17 | PCM.PROGNOTE ---
Subjective Subjective patient seen at bedside, doing well. Patient reports good pain control. lochia mild. denies SOB, cp or dizziness when ambulating. breast feeding w/o difficulty. pt ready for dc home. Objective Data Objective Data Vital Signs: Vital Signs Temp Pulse Resp BP Pulse Ox O2 Del Method 98.2 F 96 16 109/62 98 Room Air 11/10/23 01:12 11/10/23 01:12 11/10/23 01:12 11/10/23 01:12 11/10/23 01:11/10/23 01:12 Oxygen Delivery Method Room Air Weight: 110.223 kg Body Mass Index (BMI) 38.0 Intake & Output: Intake and Output for Last 24 Hours 11/08/23 11/09/23 11/10/23 23:59 23:59 23:59 Intake Total 3991.19 / 3991.19 2121.65 / 2121.65 Output Total 1450 / 1450 5500 / 5500 Balance 2541.19 / 2541.19 -3378.35 / -3378.35 Lab / Micro Data 11/10/23 04:40 Labs: Laboratory Results - last 24 hr 11/10/23 04:40: WBC 15.9 H, RBC 2.94 L, Hgb 8.4 L, Hct 25.0 L, MCV 85.0, MCH 28.6, MCHC 33.6, RDW Std Deviation 43.0, RDW Coeff of Celestina 14.1, Plt Count 141 L, MPV 8.5, Immature Gran % (Auto) 1.400 H, Neut % (Auto) 78.3 H, Lymph % (Auto) 12.3 L, [place] % (Auto) 6.4, Eos % (Auto) 1.3, Baso % (Auto) 0.3, Absolute Neuts (auto) 12.5 H, Absolute Lymphs (auto) 1.95, Nucleated RBC % 0 Physical Exam Narrative abd: fundus firm. Const alert and oriented x3 General Appearance: cooperative HEENT normocephalic Neck General: normal visual inspection GI soft to palpation and non-distended GI Narrative: Fundus firm Extremity normal to inspection and no calf tenderness Skin no rashes or lesions noted Neuro oriented x3 and CN's II-XII intact bilaterally Psych mental status grossly normal Assessment & Plan Assessment/Plan (1) Second degree laceration of perineum, delivered, current hospitalization: (2) Atony of uterus with hemorrhage: (3) (spontaneous vaginal delivery): (4) Shoulder dystocia during labor and delivery: (5) Maternal obesity syndrome in third trimester: PLAN: Plan PPD#2 , Doing well PPH - uterine atony- w/ acute on chronic blood loss Routine care pain mgmt ambulation start PO iron Dc home
--- NOTE | 2023-11-10 08:20 | PCM.DC ---
Discharge Instructions Diet Discharge Diet: No restrictions Activity May resume sexual activity in: 6-8 weeks Dressing / Incision Call your doctor if you observe: Fever of 101 or Higher, Inability to urinate, Using more than 1 pad per hour and Uncontrolled pain Follow Up Care Please Follow Up With: Rajwinder Valentine MD When: 1-2 weeks post and again at 6 weeks post . [phone] Test Results: Test results from this visit will be discussed in further detail at your follow-up appointment, if applicable. Discharge Plan Admission Admit Date/Time: 11/08/23 07:17 Attending Provider: Elena Lee Primary Care Provider: Araseli King Discharge Orders/Prescriptions Prescriptions: New acetaminophen 500 mg Tablet 1,000 mg PO Q6H PRN PRN (Reason: Pain 1-10 Or Fever) Qty: 0 0RF ibuprofen 600 mg Tablet 600 mg PO Q6H PRN PRN (Reason: Pain Score 1-10) Qty: 0 0RF Continued sertraline [Zoloft] 100 mg tablet 100 mg PO DAILY Mynatal Plus 65 mg iron- 1 mg tablet 1 tab PO DAILY magnesium 200 mg tablet 200 mg PO DAILY ferrous sulfate [Feosol] 325 mg (65 mg iron) tablet 325 mg PO QDAY Referrals / Follow Up: Araseli King MD [Primary Care Provider] - Disposition Disposition (needs filled in before D/C Order can be placed): Home, Self Care
[2023-11-10 08:30] VITALS: BP 119/61; PULSE 86; RESP 16; TEMP 36.3; O2SAT 98
[2023-11-10] MEDS: Acetaminophen 500 MG Tablet 1000 MG PO (08:42)
[2023-11-10] MEDS: Ferrous Sulfate 325 MG Tablet PO (10:37)
[2023-11-10] MEDS: Sertraline 100 MG Tablet PO (10:37)
[2023-11-10] MEDS: Senna/Docusate Sodium 1 Tablet PO (11:26)
[2023-11-10 13:28] VITALS: BP 101/54; PULSE 71; RESP 16; TEMP 36.2; O2SAT 99
== END 2023-11-10 14:00 | disposition home or self-care (01) | DRG 807 ==
PROVIDERS: Obstetrics & Gynecology; Admitting Provider Obstetrics & Gynecology; PCP Family Medicine Sports Medicine; Visit Provider Obstetrics & Gynecology
DX: O99.214 Obesity complicating childbirth (principal); Z37.0 Single live birth; O99.344 Other mental disorders complicating childbirth; F41.9 Anxiety disorder, unspecified; O66.0 Obstructed labor due to shoulder dystocia; O72.1 Other immediate postpartum hemorrhage; O70.1 Second degree perineal laceration during delivery; O99.824 Streptococcus B carrier state complicating childbirth; O69.81X0 Labor and delivery complicated by cord around neck, without compression, not applicable or unspecified; Z3A.39 39 weeks gestation of pregnancy; Z79.899 Other long term (current) drug therapy
CPT/HCPCS: 59025; 59050; 85025; 85384; 85610; 86780; 86850; 86900; 86901; 99221; J7120; A4216; G0378; J2405